=== PATIENT | male | born 1970 | race Caucasian/White ===

== ENCOUNTER 2024-10-12 13:47 | Outpatient (REF) | payer MEDICAID, SELFPAY ==
--- NOTE | ~2024-10-12 | XR_ITS ---
EXAMINATION: XR LUMBOSACRAL SPINE CLINICAL INFORMATION: pain COMPARISON: None available. TECHNIQUE: Three views of the lumbosacral spine. FINDINGS: No fracture, compression deformity, or suspicious bone lesion. Minimal dextroconvex scoliosis apex at L5. This could be positional. Normal lordosis. Trace degenerative 2 mm retrolistheses of L3 on L4 and L4 on L5. Severe disc degeneration focally L4-5 and L5-S1. Moderate disc degeneration at L3-4. Mild disc degeneration L2-3. Normal facet alignment. Degenerative facet changes most notable L4-S1. Sacrum and SI joints appear normal. There are vascular calcifications in the soft tissues. XR/XR lumbar spine 2-3V IMPRESSION: 1. No acute bony abnormalities. 2. Degenerative spondylosis most significant at L4-S1. Electronically signed by: Cristi Concepcion MD 10/12/2024 02:28 PM [facility]
--- OUTSIDE RECORDS SUMMARY | 2024-10-12 14:48 | XMS_ITS | Encounter Summary ---
Author Organization [employer] Address [address] [facility] [address] [address] [place] [address] Care Team Providers Care Education Adviser Name Role Phone Unavailable Primary Care Provider Unavailabl e Reason for Visit * Reason Comments Fall Encounter Details Date Type Department Care Team (Late st Contact Info) Description 10/12/2024 1:00 PM EST Office Visit [facility] [address], [place] [phone] Janette Shields MD [address] [place], [place] [phone] Primary hypertension (Primary Dx); Acute left-sided low back pain without sciatica; Smoker Social History Tobacco Use Types Packs/Day Years Used Date Smoking Tobacco: Never Assessed Sex and Gender Information Value Date Recorded Sex Assigned at Male 10/12/2024 10:31 AM EST Legal Sex Male 10:51 AM EST Gender Identity Male 10/12/2024 10:31 AM EST Sexual Orientation Straight 10/12/2024 10 :31 AM EST documented as of this encounter Last Filed Vital Signs Vital Sign Reading Time Taken Comments Blood Pressure 167/87 10/12/2024 1:01 PM EST Pulse 69 10/12/2024 1:01 PM EST Temperature 36.8 ??C (98.2 ??F) 10/12/2024 1:01 PM ES T Respiratory Rate 18 10/12/2024 1:01 PM EST Oxygen Saturation 96% 10/12/2024 1:01 PM EST Inhaled Oxygen Concentration - - Weight 110 kg (243 lb) 10/12/2024 1:01 PM EST Height - - Body Mass Index - - documented in this encounter Progress Notes * Janette Schuster MD - 10/12/2024 1:00 PM EST SUBJECTIVE: Du Ruggiero is a 54 y.o. year old male who presents for s/p fall, back pain . Occupation:[employer] Lives with:cousin - EtOH occasionally on birthdays and holidays - smoking cigarettes 25 cigarettes daily - recreational drug use denies Diet:regular Exercise:sedentary Surgeries/Hospitalizations:none Colonoscopy: 5 years ago in [place] PMHx:HTN FMHx:mother diabetes Immunizations: Reviewed Acute Concerns: Patient reports 2 days ago he was on his driveway, it was icy and he slept and fell on his back, hedid hit his head but reports it was not too hard, he reports he only has pain on his lower back left side, patient denies LOC, headache, nausea, vomiting, change in vision, dizziness, palpitations, confusion or other symptoms Social History Social History Narrative Not on file Patient Active Problem List Diagnosis Primary hypertension Acute left-sided low back pain without sciatica Smoker No family history on file. Review of Systems Constitutional: Negative. HENT: Negative. Respiratory: Negative. Cardiovascular: Negative. Musculoskeletal: Positive for back pain and myalgias. Neurological: Negative. OBJECTIVE: Vitals: 10/12/24 1301 BP: (!) 167/87 BP Location: Left arm Patient Position: Sitting BP Cuff Size: Large adult Pulse: 69 Resp: 18 Temp: 98.2 ??F (36.8 ??C) TempSrc: Temporal SpO2: 96% Weight: 243 lb (110 kg) Physical Exam Constitutional: Appearance: Normal appearance. Cardiovascular: Rate and Rhythm: Normal rate and regular rhythm. Pulmonary: Effort: Pulmonary effort is normal. Breath sounds: Normal breath sounds. Abdominal: General: Abdomen is flat. Palpations: Abdomen is soft. Musculoskeletal: Lumbar back: Spasms and tenderness present. Right lower leg: No edema. Left lower leg: No edema. Neurological: General: No focal deficit present. Mental Status: He is alert and oriented to person, place, and time. Mental status is at baseline. Cranial Nerves: No cranial nerve deficit. Motor: No weakness. Gait: Gait normal. Follow Up: Follow up for 2 weeks with nurse for BP check . No current outpatient medications on file prior to visit. No current facility-administered medications on file prior to visit. Problem List Items Addressed This Visit Primary hypertension - Primary I advised low Na diet and weight reduction Patient was taking amlodipine 10mg daily (prescribed in [place]) but he run out a long time ago, I will refill his prescription In light of smoker and HTN I start him on statin Blood work ordered patient will be contacted with results RTC 2 weeks nurse visit for BP check if BP is not at goal I will add hydrochlorothiazide 12.5mg daily Relevant Medications amLODIPine (Norvasc) 10 MG tablet atorvastatin (Lipitor) 40 MG tablet Other Relevant Orders CBC auto differential Comprehensive Metabolic Panel Hemoglobin A1c HIV-1/2 Antigen and Antibodies, Fourth Generation, with Reflexes Hepatitis C Antibody with Reflex to HCV, RNA, Quantitative, Real-Time PCR Lipid Panel, Standard Vitamin D, 25-Hydroxy, Total, Immunoassay Acute left-sided low back pain without sciatica Apply heat on affected area XRAY ordered he will be contacted with result Relevant Medications acetaminophen (Tylenol Extra Strength) 500 MG tablet cyclobenzaprine (Flexeril) 5 MG tablet Other Relevant Orders XR Lumbar Spine 2-3 Views Smoker Counseling done Nicotine patch prescribed Relevant Medications nicotine (Nicoderm CQ) 21 MG/24HR patch documented in this encounter Miscellaneous Notes * Assessment & Plan Note - Janette Schuster MD - 10/12/2024 1:45 PM EST Associated Problem(s): Smoker Counseling done Nicotine patch prescribed * Assessment & Plan Note - Janette Schuster MD - 10/12/2024 1:44 PM EST Associated Problem(s): Acute left-sided low back pain without sciatica Apply heat on affected area XRAY ordered he will be contacted with result * Assessment & Plan Note - Janette Schuster MD - 10/12/2024 1:44 PM EST Associated Problem(s): Primary hypertension I advised low Na diet and weight reduction Patient was taking amlodipine 10mg daily (prescribed in [place]) but he run out a long time ago, I will refill his prescription In light of smoker and HTN I start him on statin Blood work ordered patient will be contacted with results RTC 2 weeks nurse visit for BP check if BP is not at goal I will add hydrochlorothiazide 12.5mg daily documented in this encounter Plan of Treatment Upcoming Encounters Date Type Department Care Team (Late st Contact Info) Description 10/26/2024 1:30 PM EST Office Visit [facility] [address] [place] [phone] Scheduled Orders Name Type Priority Associated Diagnoses Orde r Schedule CBC auto differential Lab Routine Primary hypertension Expected: 10/12/2024 (Approximate), Expires: 10/12/2025 Comprehensive Metabolic Panel Lab Routine Primary hypertension Expected: 10/12/2024 (Approximate), Expires: 10/12/2025 Hemoglobin A1c Lab Routine Primary hypertension Expected: 10/12/2024 (Approximate), Expires: 10/12/2025 HIV-1/2 Antigen and Antibodies, Fourth Generation, with Reflexes Lab Routine Primary hypertension Expected: 10/12/2024 (Approximate), Expires: 10/12/2025 Hepatitis C Antibody with Reflex to HCV, RNA, Quantitative, Real-Time PCR Lab Routine Primary hypertension Expected: 10/12/2024, Expires: 10/12/2025 Lipid Panel, Standard Lab Routine Primary hypertension Expected: 10/12/2024 (Approximate), Expires: 10/12/2025 Vitamin D, 25-Hydroxy, Total, Immunoassay Lab Routine Primary hypertension Expected: 10/12/2024 (Approximate), Expires: 10/12/2025 documented as of this encounter Procedures Procedure Name Priority Date/Time Associated Diagnosis Comments XR LUMBAR SPINE 2-3 VIEWS Routine 10/12/2024 1:49 PM EST Acute left-sided low back pain without sciatica documented in this encounter Results * XR Lumbar Spine 2-3 Views (10/12/2024 1:49 PM EST) Anatomical Region Laterality Modality Spine, L-spine Radiographic Robina ging 10/12/2024 1:49 PM EST Narrative 10/12/2024 2:31 PM EST ?[facility] ?[address] ?[place] [address] ?XRay Report ? Signed ? Patient: Bahman,Coran ?MR#: [id number] ?? 2 ? : 1970 ?Acct:[id number] ? Age/Sex: 54 / M ?ADM Date: 10/12/24 ? Loc: HO.HHCX ? Attending Dr: Janette Schuster MD ? Ordering Physician: Janette Shields MD ?? Date of Service: 10/12/24 ?? Procedure(s): XR lumbar spine 2-3V ?? Accession Number(s): [id number] ? cc: Janette Shields MD ? EXAMINATION: ?? XR LUMBOSACRAL SPINE ? CLINICAL INFORMATION: ?? pain ? COMPARISON: ?? None available. ? TECHNIQUE: ?? Three views of the lumbosacral spine. ? FINDINGS: ?? No fracture, compression deformity, or suspicious bone lesion. ?? Minimal dextroconvex scoliosis apex at L5. This could be positional. ?? Normal lordosis. ?? Trace degenerative 2 mm retrolistheses of L3 on L4 and L4 on L5. ? Severe disc degeneration focally L4-5 and L5-S1. ?? Moderate disc degeneration at L3-4. ?? Mild disc degeneration L2-3. ? Normal facet alignment. Degenerative facet changes most notable L4-S1. ? Sacrum and SI joints appear normal. ? There are vascular calcifications in the soft tissues. ? XR/XR lumbar spine 2-3V ?? IMPRESSION: ?? 1. No acute bony abnormalities. ?? 2. Degenerative spondylosis most significant at L4-S1. ? Electronically signed by: ??Cristi Concepcion MD ??10/12/2024 02:28 PM EST RP ? Dictated By: ?Cristi Concepcion MD ? Signed By: ?<Electronically signed by Cristi Concepcion MD in OV> ?10/12/24 1428 ? DD/ 1349 ? TD/TT: 10/12/24 1350 ? Ecosystem Ecology Professor: ? Procedure Note Breanna, Image - 10/12/2024 [facility] [address] [place] [address] XRay Report Signed Patient: Du RuggieroMR#: [id number] 2 : 1970Acct:[id number] Age/Sex: 54 / MADM Date: 10/12/24 Loc: HO.CX Attending Dr: Janette Schuster MD Ordering Physician: Janette Shields MD Date of Service: 10/12/24 Procedure(s): XR lumbar spine 2-3V Accession Number(s): [id number] cc: Janette Shields MD EXAMINATION: XR LUMBOSACRAL SPINE CLINICAL INFORMATION: pain COMPARISON: None available. TECHNIQUE: Three views of the lumbosacral spine. FINDINGS: No fracture, compression deformity, or suspicious bone lesion. Minimal dextroconvex scoliosis apex at L5. This could be positional. Normal lordosis. Trace degenerative 2 mm retrolistheses of L3 on L4 and L4 on L5. Severe disc degeneration focally L4-5 and L5-S1. Moderate disc degeneration at L3-4. Mild disc degeneration L2-3. Normal facet alignment. Degenerative facet changes most notable L4-S1. Sacrum and SI joints appear normal. There are vascular calcifications in the soft tissues. XR/XR lumbar spine 2-3V IMPRESSION: 1. No acute bony abnormalities. 2. Degenerative spondylosis most significant at L4-S1. Electronically signed by: Cristi Concepcion MD 10/12/2024 02:28 PM [facility] Dictated By: Cristi Concepcion MD Signed By: <Electronically signed by Cristi Concepcion MD in OV> 10/12/24 1428 DD/ 1349 TD/TT: 10/12/24 1350 Ecosystem Ecology Professor: Janette Schuster MD IMG XR PROCEDURES Jeff gera Result - Final documented in this encounter Visit Diagnoses Diagnosis Primary hypertension- Primary Unspecified essential hypertension Acute left-sided low back pain without sciatica Smoker Tobacco use disorder documented in this encounter
--- OUTSIDE RECORDS SUMMARY | 2024-10-12 14:48 | XMS_ITS | Clinical Summary ---
Author Organization [employer] Address [address] [facility] [address] [place] [address] Care Team Providers Care Inspector Elevators Name Role Phone Unavailable Primary Care Provider Unavailabl e Allergies No known active allergies Medications amLODIPine (Norvasc) 10 MG tabletIndications :Primary hypertension Take 1 tablet (10 mg) by mouth Once per day. 90 tablet 5 10/12/19 26 Active acetaminophen (Tylenol Extra Strength) 500 MG tabletIndications :Acute left-sided low back pain without sciatica Take 2 tablets (1,000 mg) by mouth every 8 (eight) hours if needed for mild pain for up to 10 days. 30 tablet 5 10/22/19 25 Active cyclobenzaprine (Flexeril) 5 MG tabletIndications :Acute left-sided low back pain without sciatica Take 1 tablet (5 mg) by mouth 3 times daily for 10 days. 30 tablet 5 10/22/19 25 Active atorvastatin (Lipitor) 40 MG tabletIndications :Primary hypertension Take 1 tablet (40 mg) by mouth Once per day. 30 tablet 2 5 10/12/19 26 Active nicotine (Nicoderm CQ) 21 MG/24HR patchIndications: Smoker Place 1 patch on the skin 1 (one) time each day at the same time. 30 patch 5 11/12/19 25 Active Active Problems Problem Noted Date Diagnosed Date Primary hypertension 10/12/2024 Assessment & Plan (10/12/2024 1:46 PM EST): I advised low Na diet and weight [...] goal I will add hydrochlorothiazide 12.5mg daily Acute left-sided low back pain without sciatica 10/12/2024 Assessment & Plan (10/12/2024 1:44 PM EST): Apply heat on affected area XRAY ordered he will be contacted with result Smoker 10/12/2024 Assessment & Plan (10/12/2024 1:45 PM EST): Counseling done Nicotine patch prescribed Encounters Date Type Department Care Team Description 10/12/2024 1:00 PM EST Office Visit [facility] [address] [place] [phone] Janette Shields MD Primary hypertension (Primary Dx); Acute left-sided low back pain without sciatica; Smoker from Last 3 Months Social History Tobacco Use Types Packs/Day Years Used Date Smoking Tobacco: Never Assessed Sex and Gender Information Value Date Recorded Sex Assigned at Male 10/12/2024 10:31 AM EST Legal Sex Male 10:51 AM EST Gender Identity Male 10/12/2024 10:31 AM EST Sexual Orientation Straight 10/12/2024 10 :31 AM EST Last Filed Vital Signs Vital Sign Reading [...] - - Body Mass Index - - Plan of Treatment Upcoming Encounters Date Type Department Care Team (Late st Contact Info) Description 10/26/2024 1:30 PM EST Office Visit [facility] [address] [place] [address] Health Maintenance Due Date Last Done Comments CT Colonography 1970 Colonoscopy 1970 Colorectal Cancer Screening 1970 Depression Screening 1970 FIT DNA/Cologuard 1970 FIT 1970 FOBT 1970 HIV Screening 1970 Lipid Panel 1970 SDOH Screening 1970 Sigmoidoscopy 1970 Alcohol/Substance Use Screening 1982 Tobacco Screening 1982 Hepatitis C Screening 1988 Pneumococcal Vaccine: 50+ Years (1 of 1 - PCV) 2020 Zoster Vaccines (1 of 2) 2020 Hepatitis B Vaccines (2 of 2 - CpG 2-dose series) 01/02/2024 12/05/2023 COVID-19 Vaccine (4 - 2023-2 5 season) 2024 11/27/2023, 02/11/2021, 01/21/2021 Influenza Vaccine (#1) 2024 DTaP/Tdap/Td Vaccines (2 - T d or Tdap) 12/04/2033 12/05/2023 RSV Patients and Patients Aged 60 years or older (1 - 1-dose 75+ series) 2045 HIB Vaccines Aged Out No longer eligi ble based on patient's age to complete this topic HPV Vaccines Aged Out No longer eligi ble based on patient's age to complete this topic Hepatitis A Vaccines Aged Out No long er eligible based on patient's age to complete this topic IPV Vaccines Aged Out No longer eligi ble based on patient's age to complete this topic Meningococcal Vaccine Aged Out No nolan gaye eligible based on patient's age to complete this topic RSV under 20 months Aged Out No longe r eligible based on patient's age to complete this topic Rotavirus Vaccines Aged Out No longer eligible based on patient's age to complete this topic Procedures Procedure Name Priority Date/Time Associated Diagnosis Comments XR LUMBAR SPINE 2-3 VIEWS Routine 10/12/2024 1:49 PM EST Acute left-sided low back pain without sciatica from Last 3 Months Results * XR Lumbar Spine 2-3 Views (10/12/2024 1:49 PM EST) Anatomical Region Laterality Modality Spine, L-spine Radiographic Robina ging 10/12/2024 1:49 PM EST Narrative 10/12/2024 2:31 PM EST ?[facility] [facility] ?[address] ?[place] [address] ?XRay Report ? Signed ? Patient: Bahman,Coran ?MR#: [id number] ?? 2 ? : 1970 ?Acct:[id number] ? Age/Sex: 54 / M ?ADM Date: 10/12/24 ? Loc: HO.HHCX ? Attending Dr: Janette Schuster MD ? Ordering Physician: Janette Shields MD ?? Date of Service: 10/12/24 ?? Procedure(s): XR lumbar spine 2-3V ?? Accession Number(s): [id number] ? cc: Janette Shields MD ? EXAMINATION: [...] DD/ 1349 ? TD/TT: 10/12/24 1350 ? Sulfuric Acid Plant Operator: ? Procedure Note Concha Carlos - 10/12/2024 [facility] [address] [place] [address] XRay Report Signed Patient: Du RuggieroMR#: [id number] 2 : 1970Acct:[id number] Age/Sex: 54 / MADM Date: 10/12/24 Loc: HO.HHCX Attending Dr: Janette Schuster MD Ordering Physician: Janette Shields MD Date of Service: 10/12/24 Procedure(s): XR lumbar spine 2-3V Accession Number(s): [id number] cc: Janette Shields MD EXAMINATION: XR LUMBOSACRAL [...] by: Cristi Concepcion MD 10/12/2024 02:[address] [facility] Dictated By: Cristi Concepcion MD Signed By: <Electronically signed by Cristi Concepcion MD in OV> 10/12/24 1428 DD/ 1349 TD/TT: 10/12/24 1350 S[employer]uric Acid Plant Operator: Janette Schuster MD IMG XR PROCEDURES Jeff gera Result - Final from Last 3 Months Insurance [employer] HSN FULL
== END 2024-10-12 13:48 | disposition home or self-care (01) ==
LOC: HO.HHCX 13:47
PROVIDERS: Visit Provider Internal Medicine
DX: M54.50 Low back pain, unspecified (principal)
CPT/HCPCS: 72100

== ENCOUNTER → 2024-10-12 13:49 | Outpatient (BNV) | payer MEDICAID, SELFPAY | PROVIDERS: Visit Provider Radiology Diagnostic Radiology | DX: M47.896 Other spondylosis, lumbar region (principal) | CPT/HCPCS: 72100 ==

== ENCOUNTER 2025-05-03 12:05 | Outpatient (REF) | payer BC, MEDICAID, SELFPAY ==
--- OUTSIDE RECORDS SUMMARY | 2025-05-03 18:00 | XMS_ITS | Encounter Summary ---
Author Organization [employer] Address [address] [facility] 7t [place] [address] Care Team Providers Care Key Carrier Name Role Phone CarmenMaria Isabel hawkins Primary Care Provider [phone] Encounter Details Date Type Department Care Team (Late st Contact Info) Description 05/03/2025 6:00 PM EDT Office Visit [facility] [address] [place], [place] [phone] Kaylah Wilburn MD [address], [place] [phone] Penile discharge (Primary Dx); Acute midline low back pain without sciatica Social History Tobacco Use Types Packs/Day Years [...] Sign Reading Time Taken Comments Blood Pressure 152/104 05/03/2025 5:28 PM EDT Pulse 98 05/03/2025 5:28 PM EDT Temperature 36.1 C (97 F) 05/03/2025 5:28 PM EDT Respiratory Rate 18 05/03/2025 5:28 PM EDT Oxygen Saturation - - Inhaled Oxygen Concentration - - Weight 106 kg (234 lb 3.2 oz) 05/03/2025 5:28 PM EDT Height 170.2 cm (5' 7 ) 05/03/2025 5:28 PM EDT Body Mass Index 36.68 05/03/2025 5:28 PM EDT documented in this encounter Patient Instructions * Patient Instructions* Kaylah Wilburn MD - 05/03/2025 6:00 PM EDT [address] [place], [place] documented in this encounter Progress Notes * Kaylah Wilburn MD - 05/03/2025 6:00 PM EDT Subjective Patient ID: Du Ruggiero is a 55 y.o. male who presents to walk in clinic for left sided back painand dysuria with penile discharge. Pt reports acute on chronic left sided back pain with associated dysuria and yellow penile discharge when trying to express discharge. Sexual activity 4 days ago. 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 L spine X ray 10/11/24 XR/XR lumbar spine 2-3V IMPRESSION: 1. No acute bony abnormalities. 2. Degenerative spondylosis most significant at L4-S1. Review of Systems Constitutional: Negative for fever. Gastrointestinal: Negative for abdominal pain, blood in stool, constipation, diarrhea and rectal pain. Genitourinary: Positive for penile discharge. Negative for decreased urine volume, difficulty urinating, dysuria, enuresis, flank pain, frequency, genital sores, hematuria, penile pain, penile swelling, scrotal swelling, testicular pain and urgency. Musculoskeletal: Positive for back pain. Negative for gait problem. Objective Visit Vitals BP (!) 152/104 (BP Location: Left arm, Patient Position: Sitting, BP Cuff Size: Adult) Pulse 98 Temp 97 ??F (36.1 ??C) (Oral) Resp 18 Body mass index is 36.68 kg/m??. Physical Exam Genitourinary: Penis: Normal and uncircumcised. No phimosis, paraphimosis, hypospadias, erythema, tenderness, discharge, swelling or lesions. Testes: Normal. Right: Mass, tenderness or swelling not present. Left: Mass, tenderness or swelling not present. Prostate: Normal. Rectum: Normal. Musculoskeletal: Lumbar back: Spasms and tenderness present. No swelling, deformity, lacerations or bony tenderness.Normal range of motion. No scoliosis. Comments: No midline tenderness deformity of step off. Left paraspinal muscle tenderness. Assessment & Plan Penile discharge Check UA, culture, STIs, he will get labs that are pending this weekend at [facility] before his PCP apt later this months. -empiric tx with doxycycline for possible STI exposure vs UTI Orders: Chlamydia/N. Gonorrhoeae, PCR, Urine Urinalysis, Complete, with Reflex to Culture; Future POCT Urinalysis doxycycline (Vibramycin) 100 MG capsule; Take 1 capsule (100 mg) by mouth 2 times daily for 10 days. Take with at least 8 ounces (large glass) of water, do not lie down for 30 minutes after Acute midline low back pain without sciatica Likely musculoskeletal. Non-focal, normal motor exam without neurological deficits. No back pain red-flags: bowel/bladder incontinence, IVDU, urinary retention, saddle anesthesia, and significant motor deficits. -xray 09/2024 without acute finding -Recommend acetmenophen and muscle relaxer prn.Orders: cyclobenzaprine (Flexeril) 10 MG tablet; One tab po at bedtime prn pain of muscles, do not drive with medicaion addendum 05/04/25 3:03 PM Positive gonorrhea, see call: Please let pt know he tested positive for gonorrhea. He needs to come in for ceftriaxone 500mg IM. Please obtain gonorrhea culture before treatment to test for resistance. I will place order. He can stop the doxycycline. Return 3 months for retesting. Please confirm he has no allergies to antibiotics and let me know when treated if if can't reach him. Thank you. Future Appointments Date Time Provider Department Center 05/03/2025 6:00 PM [facility] 1 WALK-IN [facility] 05/18/2025 10:30 AM [facility] RED TEAM NURSE MEDICINE [facility] documented in this encounter Plan of Treatment Upcoming Encounters Date Type Department Care Team (Late st Contact Info) Description 05/18/2025 10:30 AM EDT Office Visit [facility] [address] [place] [address] documented as of this encounter Procedures Procedure Name Priority Date/Time Associated Diagnosis Comments POCT URINALYSIS DIPSTICK Routine 05/03/2025 5:41 PM EDT Penile discharge CHLAMYDIA/TRICHOMONA S/NEISSERIA GONORRHOEAE, PCR, URINE Routine 05/03/2025 5:39 PM EDT Penile discharge URINALYSIS, COMPLETE, WITH REFLEX TO CULTURE Routine 05/03/2025 5:39 PM EDT Penile discharge documented in this encounter Results * (ABNORMAL) POCT Urinalysis (05/03/2025 5:41 PM EDT) Color, UA Light Yellow Clarity, UA Cloudy Glucose, UA Trace Comment:250mg Bilirubin, UA Negative Ketones, UA Negative Spec Grav, UA 1.025 Blood, UA Positive(A) Negative, None Detected Comment:trace-intact pH, UA 6.0 Protein, UA Trace Comment:30mg Urobilinogen, UA 0.2 Leukocytes, UA Moderate(A) Negative, Rare, Trace Nitrite, UA Negative Negative, None Detected Appearance, UA cloudy QC Media Lot # [id number] Lot# Expiration Date Urine 05/03/2025 5:41 PM EDT Kaylah Wilburn MD POINT OF CARE TEST ENTER/E DIT ORDERABLES Final Result * (ABNORMAL) Urinalysis, Complete, with Reflex to Culture (05/03/2025 5:39 PM EDT) Color Urine Yellow [facility] Appearance Urine Turbid [facility] PH 6.0 5.0 - 9.0 [facility] Glucose Urine UA 500(A) Negative mg/dL [facility] Urine Blood Negative Negative [facility] Specific [place] - Urine >=1.030(H) 1.005 - 1.025 [facility] Urine Protein 30 (1+)(A) Neg-Trace mg/dL [facility] Urine Ketones Trace Negative mg/dL [facility] Nitrite Urine Negative Negative [facility] Leukocyte Esterase Urine Moderate (2+)(A) Negative [facility] RBC Urine 0-2 0 - 2 /HPF [facility] Urine WBC >50(A) 0 - 5 /HPF [facility] Urine Squamous Epithelial Cell 0-2 0 - 2 /HPF [facility] CALCIUM OXALATE CRYSTAL, UR Present [facility] Urine Bacteria None Seen None Seen [facility] Hyaline Casts, Urine 11-20 0 - 2 /LPF [facility] Urine 05/03/2025 5:39 PM EDT 05/04/2025 12:08 PM EDT Narrative [facility] - 05/04/2025 12:49 PM EDT [id number], Clean Catch us Kaylah Wilburn MD LAB URINE ORDERABLES Final Result [facility] [address] [place] [phone] [phone] * (ABNORMAL) Chlamydia/N. Gonorrhoeae, PCR, Urine (05/03/2025 5:39 PM EDT) CT PCR, Urine NOT DETECTED Not Detect. [facility] Comment:A not detected test result does not exclude the possibilityof infection because test results can be affected byimproper specimen collection, concurrent antibiotic therapy,or the number of organisms in the specimen which may bebelow the sensitivity of the test. As with many diagnostictests, results from the Xpert CT/NG assay should beinterpreted in conjunction with other laboratory andclinical data available to the clinician.The Xpert CT/NG assay should not be used for the evaluationof suspected sexual abuse or for other medico-legalindications. Additional testing is recommended in anycircumstance when false positive or false negative resultscould lead to adverse medical, social or psychologicalconsequences. NG PCR, Urine DETECTED(A) Not Detect. [facility] Comment:As with many diagnos tic tests, results from the Xpert CT/NGassay should be interpreted in conjunction with otherlaboratory and clinical data available to the clinician.Xpert CT/NG performance has not been evaluated in patientsless than 14 years of age. The assay should not be used forthe evaluationof suspected sexual abuse or for other medico-legalindications. Additional testing is recommended in anycircumstance when false positive or false negative resultscould lead to adverse medical, social or psychologicalconsequences.These results must be reported by the ordering clinician orclinical facility to the [facility] required by state law. Urine (Urine, Random) 05/03/2025 5:39 PM EDT 05/04/2025 12:16 PM EDT us Kaylah Wilburn MD LAB URINE ORDERABLES Final Result [facility] [address] [place] [phone] documented in this encounter Visit Diagnoses Diagnosis Penile discharge- Primary Urethral discharge Acute midline low back pain without sciatica documented in this encounter Care Teams Key Carrier Relationship Specialty Start Date End Date Maria Isabel North DO [address] [place] [phone] PCP - General Family Medicine 05/03/25 documented as of this encounter
[2025-05-04 12:33] LABS: Appearance Urine Turbid; Glucose Urine UA 500 mg/dL (Negative); PH 6.0 (5.0-9.0); Specific Gravity - Urine >= 1.030 (1.005-1.025); UMIC TRIGGER UACC YES
[2025-05-04 12:49] LABS: UACC Culture Trigger YES
[2025-05-04 14:04] LABS: CT PCR Urine NOT DETECTED (Not Detect.); NG PCR Urine DETECTED (Not Detect.)
--- OUTSIDE RECORDS SUMMARY | 2025-05-04 15:16 | XMS_ITS | Encounter Summary ---
Author Organization [employer] Address [address] [facility] 7t [place] [address] Care Team Providers Care Line Maintenance Name Role Phone Maria Isabel North DO Primary Care Provider [phone] Encounter Details Date Type Department Care Team (Late st Contact Info) Description 05/04/2025 Results Follow-Up [facility] [address] [place] [phone] Kaylah Wilburn MD [address] [place] [phone] Chlamydia/N. Gonorrhoeae, PCR, Urine, Urinalysis, Complete, with Reflex to Culture, POCT Urinalysis Social History Tobacco Use Types Packs/Day Years Used Date Smoking Tobacco: Never Assessed Sex and Gender Information Value Date Recorded Sex Assigned at Male 10/12/2024 10:31 AM EST Legal Sex Male 10:51 AM EST Gender Identity Male 10/12/2024 10:31 AM EST Sexual Orientation Straight 10/12/2024 10 :31 AM EST documented as of this encounter Plan of Treatment Upcoming Encounters Date Type Department Care Team (Late Contact Info) Description 05/18/2025 10:30 AM EDT Office Visit [facility] [address] [place] [phone] Scheduled Orders Name Type Priority Associated Diagnoses Orde r Schedule Neisseria gonorrhoeae Culture with Reflex to Susceptibility Microbiology Routine Gonorrhea Expected: 05/04/2025 (Approximate), Expires: 05/04/2026 documented as of this encounter Visit Diagnoses Diagnosis Gonorrhea- Primary Gonococcal infection (acute) of lower genitourinary tract documented in this encounter Care Teams Line Maintenance Relationship Specialty Start Date End Date Maria Isabel North DO [address] [place] [phone] PCP - General Family Medicine 05/03/25 documented as of this encounter
--- OUTSIDE RECORDS SUMMARY | 2025-05-04 15:16 | XMS_ITS | Clinical Summary ---
Author Organization [employer] Address [address] [facility] 7t [place] [address] Care Team Providers Care Electrical Hardware Engineer Name Role Phone Mary Anne Maria Isabel Primary Care Provider [phone] Allergies No known active allergies Medications atorvastatin (Lipitor) 40 MG tabletIndicatio ns:Primary hypertension Take 1 tablet (40 mg) by mouth Once per day. 30 tablet 2 10/12/19 25 026 Active nicotine (Nicoderm CQ) 21 MG/24HR patchIndication s:Smoker Place 1 patch on the skin 1 (one) time each day at the same time. 30 patch 10/12/19 25 Active amLODIPine (Norvasc) 10 MG tabletIndicatio ns:Primary hypertension Take 1 tablet (10 mg) by mouth Once per day. 90 tablet 1 04/26/20 25 Active cyclobenzaprine (Flexeril) 10 MG tabletIndicatio ns:Acute midline low back pain without sciatica One tab po at bedtime prn pain of muscles, do not drive with medicaion 30 tablet 05/03/20 25 Active doxycycline (Vibramycin) 100 MG capsuleIndicati ons:Penile discharge Take 1 capsule (100 mg) by mouth 2 times daily for 10 days. Take with at least 8 ounces (large glass) of water, do not lie down for 30 minutes after 20 capsule 05/03/20 25 025 Active amLODIPine (Norvasc) 10 MG tabletIndicatio ns:Primary hypertension TAKE 1 TABLET (10 MG) BY MOUTH ONCE PER DAY. 90 tablet 01/08/20 25 025 Discontinued(Re order (will not trigger notification to Pharmacy)) Hospital, Clinic, or Other Facility Administered Medication Ordered Dose Route Frequency Start Date End Date Status cefTRIAXone (Rocephin) vial 500 mgIndications:Gonorrhea 500 mg IM Once 05/04/2025 Active Active Problems Problem Noted Date Diagnosed [...] Encounters Date Type Department Care Team Description 05/04/2025 Results Follow-Up [facility] [address] [place] [phone] Kaylah Wilburn MD Chlamydia/N. Gonorrhoeae, PCR, Urine, Urinalysis, Complete, with Reflex to Culture, POCT Urinalysis 05/03/2025 6:00 PM EDT Office Visit [facility] [address] [place] [phone] Kaylah Wilburn MD Penile discharge (Primary Dx); Acute midline low back pain without sciatica 05/03/2025 Travel 04/26/2025 9:40 AM EDT Office Visit [facility] [address] [address] Maria Isabel North DO Essential hypertension (Primary Dx); Primary hypertension 04/26/2025 Travel from Last 3 Months Social History Tobacco [...] 18 05/03/2025 5:28 PM EDT Oxygen Saturation 96% 04/26/2025 10:01 AM EDT Inhaled Oxygen Concentration - - Weight 106 kg (234 lb 3.2 oz) 05/03/2025 5:28 PM EDT Height 170.2 cm (5' 7 ) 05/03/2025 5:28 PM EDT Body Mass Index 36.68 05/03/2025 5:28 PM EDT Plan of Treatment Upcoming Encounters Date Type Department Care Team (Late st Contact Info) Description 05/18/2025 10:30 AM EDT Office Visit [facility] [address] [place] [phone] Health Maintenance Due Date Last Done Comments CT Colonography 1970 Colonoscopy 1970 Colorectal Cancer Screening 1970 Depression Screening 1970 FIT DNA/Cologuard 1970 FIT 1970 FOBT 1970 HIV Screening 1970 Lipid Panel 1970 SDOH Screening 1970 Sigmoidoscopy 1970 Disability Screening 1970 Alcohol/Substance Use Screening 1982 Tobacco Screening 1982 Hepatitis C Screening 1988 Pneumococcal Vaccine: 50+ Years (1 of 1 - PCV) 2020 Zoster Vaccines (1 of 2) 2020 Hepatitis B Vaccines (2 of 2 - CpG 2-dose series) 01/02/2024 12/05/2023 COVID-19 Vaccine (4 - 2024-2 6 season) 2025 11/27/2023, 02/11/2021, 01/21/2021 Influenza Vaccine (#1) 2025 DTaP/Tdap/Td Vaccines (2 - T d or [...] patient's age to complete this topic Meningococcal B Vaccine Aged Out No l onger eligible based on patient's age to complete [...] Routine 05/03/2025 5:41 PM EDT Penile discharge URINALYSIS, COMPLETE, WITH REFLEX TO CULTURE Routine 05/03/2025 5:39 PM EDT Penile discharge CHLAMYDIA/TRICHOMONA S/NEISSERIA GONORRHOEAE, PCR, URINE Routine 05/03/2025 5:39 PM EDT Penile discharge from Last 3 Months Results * (ABNORMAL) POCT Urinalysis (05/03/2025 5:41 [...] Media Lot # [id number] Lot# Expiration Date , Urine 05/03/2025 5:41 PM EDT Kaylah Wilburn MD POINT OF CARE TEST ENTER/E DIT ORDERABLES Final Result * (ABNORMAL) Chlamydia/N. Gonorrhoeae, PCR, Urine (05/03/2025 5:39 PM EDT) CT PCR, Urine NOT DETECTED Not Detect. [facility] Comment:A not detected test result does [...] NG PCR, Urine DETECTED(A) Not Detect. [facility] Comment:As with many diagnos tic tests, [...] the ordering clinician orclinical facility to the [facility] required by state law. Urine (Urine, Random) 05/03/2025 5:39 PM EDT 05/04/2025 12:16 PM EDT us Kaylah Wilburn MD LAB URINE ORDERABLES Final Result [facility] [address] [place] [phone] * (ABNORMAL) Urinalysis, Complete, with Reflex to Culture (05/03/2025 5:39 PM EDT) Color Urine Yellow [facility] Appearance Urine Turbid [facility] PH 6.0 5.0 - 9.0 [facility] Glucose Urine UA 500(A) Negative mg/dL [facility] Urine Blood Negative Negative [facility] Specific [place] - Urine >=1.030(H) 1.005 - 1.025 [facility] Urine Protein 30 (1+)(A) Neg-Trace mg/dL [facility] Urine Ketones Trace Negative mg/dL [facility] Nitrite Urine Negative Negative [facility] Leukocyte Esterase Urine Moderate (2+)(A) Negative [facility] RBC Urine 0-2 0 - 2 /HPF [facility] Urine WBC >50(A) 0 - 5 /HPF [facility] Urine Squamous Epithelial Cell 0-2 0 - 2 /HPF [facility] CALCIUM OXALATE CRYSTAL, UR Present [facility] Urine Bacteria None Seen None Seen [facility] Hyaline Casts, Urine 11-20 0 - 2 /LPF [facility] Urine 05/03/2025 5:39 PM EDT 05/04/2025 12:08 PM EDT Narrative [facility] - 05/04/2025 12:49 PM EDT [id number], Clean Catch us Kaylah Wilburn MD LAB URINE ORDERABLES Final Result [facility] [address] [place] [phone] from Last 3 Months Insurance [facility] Main [address] [address] [employer] HMO Care Teams Electrical Hardware Engineer Relationship Specialty Start Date End Date Maria Isabel North DO [address] [place] [address] PCP - General Family Medicine 05/03/25
--- OUTSIDE RECORDS SUMMARY | 2025-05-04 15:16 | XMS_ITS | Encounter Summary ---
Author Organization [employer] Address [address] [facility] [address]t [place] [address] Care Team Providers Care Metal Spray Operator Name Role Phone Maria Isabel North DO Primary Care Provider Encounter Details Date Type Department Care Team (Latest Contact Info) Description 05/03/2025 Travel Social History Tobacco Use Types Packs/Day Years [...] Description 05/18/2025 10:30 AM EDT Office Visit [facility] [address] [place] [address] documented as of this encounter Visit Diagnoses Not on filedocumented in this encounter Care Teams Metal Spray Operator Relationship Specialty Start Date End Date Maria Isabel North DO [address] [place] [address] PCP - General Family Medicine 05/03/25 documented as of this encounter
== END 2025-05-03 12:06 | disposition home or self-care (01) ==
LOC: HO.HHCLNP 12:05
PROVIDERS: Visit Provider Family Medicine
DX: R36.9 Urethral discharge, unspecified (principal)
CPT/HCPCS: 81001; 87086; 87491; 87591

== ENCOUNTER 2025-05-18 10:55 | Outpatient (REF) | payer BC, MEDICAID, SELFPAY ==
--- OUTSIDE RECORDS SUMMARY | 2025-05-18 10:30 | XMS_ITS | Encounter Summary ---
Author Organization [employer] Address [address] [facility] 7t [place] [address] Care Team Providers Care Professor Of Pathology Name Role Phone CarmenMaria Isabel hawkins Primary Care Provider [phone] Reason for Visit * Reason Comments Blood Pressure Check Encounter Details Date Type Department Care Team (Latest Contact Info) Description 05/18/2025 10:30 AM EDT Clinical Support [facility] MED[facility]INE [address] [place], [place] [phone] Lily Espitia RN [address] [place], [place] [phone] Primary hypertension [I10] Social History Tobacco Use [...] Patient advised RN will refer patient to [facility] eyecare and he will receive a call [...] Description 06/01/2025 10:00 AM EDT Clinical Support [facility] MED[facility]INE [address] [place] [address] documented as of this encounter Visit Diagnoses Diagnosis Primary hypertension [I10] Unspecified essential hypertension documented in this encounter Care Teams Professor Of Pathology Relationship Specialty Start Date End Date Maria Isabel North DO [address] [place] [address] PCP - General Family Medicine 05/03/25 documented as of this encounter
--- OUTSIDE RECORDS SUMMARY | 2025-05-18 10:40 | XMS_ITS | Encounter Summary ---
Author Organization [employer] Address [address] [facility] [address] [place] [address] Care Team Providers Care Parking Lot Chauffeur Name Role Phone Mary AnneMaria Isabel Primary Care Provider [phone] Encounter Details Date Type Department Care Team (Late st Contact Info) Description 05/18/2025 10:40 AM EDT Office Visit [facility] [address] [place] [address] Joya Hernandez MD [address] [place] [address] Rash (Primary Dx) Social History Tobacco Use Types Packs/Day Years Used Date Smoking Tobacco: Every Day Cigarettes Sex and Gender Information Value Date Recorded Sex Assigned at Male 10/12/2024 10:31 AM EST Legal Sex Male 10:51 AM EST Gender Identity Male 10/12/2024 10:31 AM EST Sexual Orientation Straight 10/12/2024 10 :31 AM EST documented as of this encounter Last Filed Vital Signs Vital Sign Reading Time Taken Comments Blood Pressure 124/82 05/18/2025 10:40 AM EDT Pulse 90 05/18/2025 10:40 AM EDT Temperature 36.7 C (98 F) 05/18/2025 10:40 AM EDT Respiratory Rate 18 05/18/2025 10:40 AM EDT Oxygen Saturation 96% 05/18/2025 10:40 AM EDT Inhaled Oxygen Concentration - - Weight 100 kg (221 lb) 05/18/2025 10:40 AM EDT Height - - Body Mass Index 34.61 05/03/2025 5:28 PM EDT documented in this encounter Progress Notes * Joya Hernandez MD - 05/18/2025 10:40 AM EDT Subjective Patient ID: Du Ruggiero is a 55 y.o. male who presents for No chief complaint on file.. Rash This is a new problem. The current episode started in the past 7 days. The affected locations include the genitalia. Review of Systems Respiratory: Negative. Cardiovascular: Negative. Skin: Positive for rash. Objective Physical Exam Skin: Findings: Erythema and rash present. Comments: Perianal rash Assessment/Plan Diagnoses and all orders for this visit: Rash Comments: Perianal area Started On combination of topical clobetazol and Triamcinolone Advised topical Zinc oxide Other orders - clotrimazole (Lotrimin) 1 % cream; Apply topically 2 times daily for 28 days. - triamcinolone (Kenalog) 0.1 % cream; Apply topically if needed in the morning and at bedtime (pain and swelling). documented in this encounter Plan of Treatment Upcoming Encounters Date Type Department Care Team (Late st Contact Info) Description 06/01/2025 10:00 AM EDT Clinical Support [facility] MEDICINE [address] [place] [phone] documented as of this encounter Visit Diagnoses Diagnosis Rash- Primary Rash and other nonspecific skin eruption documented in this encounter Care Teams Parking Lot Chauffeur Relationship Specialty Start Date End Date Maria Isabel North DO [address] [place] [phone] PCP - General Family Medicine 05/03/25 documented as of this encounter
--- OUTSIDE RECORDS SUMMARY | 2025-05-18 14:02 | XMS_ITS | Encounter Summary ---
Author Organization [employer] Address [address] [facility] 7t [place] [address] Care Team Providers Care Board Member Name Role Phone Maria Isabel North DO Primary Care Provider [phone] Reason for Visit * Reason Onset Date Comments Med Refill 05/18/2025 Encounter Details Date Type Department Care Team (Late st Contact Info) Description 05/18/2025 Refill [facility] MEDICINE [address] [place] [phone] Maria Isabel North DO [address] [place], [place] [phone] Social History Tobacco Use Types Packs/Day Years Used Date Smoking Tobacco: Every Day Cigarettes Sex and Gender Information Value Date Recorded Sex Assigned at Male 10/12/2024 10:31 AM EST Legal Sex Male 10:51 AM EST Gender Identity Male 10/12/2024 10:31 AM EST Sexual Orientation Straight 10/12/2024 10 :31 AM EST documented as of this encounter Miscellaneous Notes * Telephone Encounter - Lily Espitia RN - 05/18/2025 10:56 AM EDT michele documented in this encounter Plan of Treatment Upcoming Encounters Date Type Department Care Team (Late st Contact Info) Description 06/01/2025 10:00 AM EDT Clinical Support [facility] MEDICINE [address] [place] [phone] documented as of this encounter Visit Diagnoses Not on filedocumented in this encounter Care Teams Board Member Relationship Specialty Start Date End Date Maria Isabel North DO [address] [place], [place] [phone] PCP - General Family Medicine 05/03/25 documented as of this encounter
--- OUTSIDE RECORDS SUMMARY | 2025-05-18 14:02 | XMS_ITS | Clinical Summary ---
Author Organization [employer] Address [address] [facility] 7t [place] [address] Care Team Providers Care Consumer Marketing Analyst Name Role Phone Mary AnneMaria Isabel Primary Care Provider Allergies No known active allergies Medications atorvastatin [...] with medicaion 30 tablet 05/03/20 25 Active clotrimazole (Lotrimin) 1 % cream Apply topically 2 times daily for 28 days. 30 g 2 05/18/20 25 025 Active triamcinolone (Kenalog) 0.1 % cream Apply topically if needed in the morning and at bedtime (pain and swelling). 30 g 2 05/18/20 25 Active losartan (Cozaar) 25 MG tablet Take 1 tablet (25 mg) by mouth Once per day. 90 tablet 3 05/18/20 25 026 Active amLODIPine (Norvasc) 10 MG tabletIndicatio ns:Primary hypertension TAKE 1 TABLET (10 MG) BY MOUTH ONCE PER DAY. 90 tablet 01/08/20 25 025 Discontinued(Re order (will not trigger notification to Pharmacy)) doxycycline (Vibramycin) 100 MG capsuleIndicati ons:Penile discharge Take 1 capsule (100 mg) by mouth 2 times daily for 10 days. Take with at least 8 ounces (large glass) of water, do not lie down for 30 minutes after 20 capsule 05/03/20 25 025 Hospital, Clinic, or Other Facility Administered Medication Ordered Dose Route Frequency Start Date End Date Status cefTRIAXone (Rocephin) vial 500 mgIndications:Gonorrhea 500 mg IM Once 05/04/2025 05/06/20 25 Ended Active Problems Problem Noted Date Diagnosed Date [...] Encounters Date Type Department Care Team Description 05/18/2025 10:40 AM EDT Office Visit [facility] [address] [place] [phone] Joya Hernandez MD Rash (Primary Dx) 05/18/2025 10:30 AM EDT Clinical Support [facility] MED[facility] [address] [place] [address] Lily Espitia, NAHID Primary hypertension [I10] 05/18/2025 Refill [facility] [address] [place] [address] Maria Isabel North DO 05/18/2025 Travel 05/06/2025 3:00 PM EDT Clinical Support [facility] [address] [place] [address] Julia Eubanks RN Gonorrhea 05/05/2025 Travel 05/04/2025 Orders Only [facility] [address] [place] [phone] Kaylah Wilburn MD 05/04/2025 Results Follow-Up [facility] [address] [place] [phone] Kaylah Wilburn MD Chlamydia/N. Gonorrhoeae, PCR, Urine, Urinalysis, Complete, with Reflex to Culture, POCT Urinalysis 05/03/2025 6:00 PM EDT Office Visit [facility] [address] [place] [phone] Kaylah Wilburn MD Penile discharge (Primary Dx); Acute midline low back pain without sciatica 05/03/2025 Travel 04/26/2025 9:40 AM EDT Office Visit [facility] [address] [place] [phone] Maria Isabel North DO Essential hypertension (Primary [...] Pulse 95 05/18/2025 10:49 AM EDT Temperature 36.7 C (98 F) 05/18/2025 10:40 AM EDT Respiratory Rate 18 05/18/2025 10:49 AM EDT Oxygen Saturation 98% 05/18/2025 10:49 AM EDT Inhaled Oxygen Concentration - - Weight 100 kg (221 lb) 05/18/2025 10:40 AM EDT Height 170.2 cm (5' 7 ) 05/03/2025 5:28 PM EDT Body Mass Index 34.61 05/03/2025 5:28 PM EDT Plan of Treatment Upcoming Encounters Date Type Department Care Team (Late st Contact Info) Description 06/01/2025 10:00 AM EDT Clinical Support [facility] [address] [place] [address] Health Maintenance Due Date Last Done Comments CT Colonography 1970 Colonoscopy 1970 Colorectal Cancer Screening 1970 Depression Screening 1970 FIT DNA/Cologuard 1970 FIT 1970 FOBT 1970 HIV Screening 1970 Lipid Panel 1970 SDOH Screening 1970 Sigmoidoscopy 1970 Disability Screening 1970 Alcohol/Substance Use Screening 1982 Hepatitis C Screening 1988 Pneumococcal Vaccine: 50+ Years (1 of 2 - PCV) 1989 Zoster Vaccines (1 of 2) 2020 Hepatitis B Vaccines (2 of 2 - CpG 2-dose series) 01/02/2024 12/05/2023 COVID-19 Vaccine (4 - 2024-2 6 season) 2025 11/27/2023, 02/11/2021, 01/21/2021 Influenza Vaccine (#1) 2025 Tobacco Screening 05/18/2026 05/18/2025 DTaP/Tdap/Td Vaccines (2 - T d or [...] Procedure Name Priority Date/Time Associated Diagnosis Comments CULTURE, URINE, ROUTINE Routine 05/04/2025 12:00 AM EDT POCT URINALYSIS DIPSTICK Routine 05/03/2025 5:41 PM EDT Penile discharge URINALYSIS, COMPLETE, WITH REFLEX TO CULTURE Routine 05/03/2025 5:39 PM EDT Penile discharge CHLAMYDIA/TRICHOMONA S/NEISSERIA GONORRHOEAE, PCR, URINE Routine 05/03/2025 5:39 PM EDT Penile discharge from Last 3 Months Results * Culture, Urine, Routine (05/04/2025 12:00 AM EDT) Urine Urine specimen obtained by clean catch procedure / Unknown 05/04/2025 05/04/2025 Comment:UACC Narrative [facility] - 05/05/2025 9:29 AM EDT Urine Culture No growth. Specimen Source: Urine clean catch Kaylah Wilburn MD LAB MICROBIOLOGY - GENERAL ORDERABLES Final Result [facility] [address] [place] [phone] * (ABNORMAL) POCT Urinalysis (05/03/2025 5:41 PM [...] Media Lot # [id number] Lot# Expiration Date [id number] Urine 05/03/2025 5:41 PM EDT Kaylah Wilburn MD POINT OF CARE TEST ENTER/E DIT ORDERABLES Final Result * (ABNORMAL) Chlamydia/N. Gonorrhoeae, PCR, Urine (05/03/2025 5:39 PM EDT) CT PCR, Urine NOT DETECTED Not Detect. [facility] Comment:A not detected test result does [...] psychologicalconsequences. NG PCR, Urine DETECTED(A) Not Detect. [facility] Comment:As with many diagnos tic tests, [...] the ordering clinician orclinical facility to the [facility] required by state law. Urine (Urine, Random) 05/03/2025 5:39 PM EDT 05/04/2025 12:16 PM EDT Kaylah Wilburn MD LAB URINE ORDERABLES Final Result [facility] [address] [place] [phone] * (ABNORMAL) Urinalysis, Complete, with Reflex to Culture (05/03/2025 5:39 PM EDT) Color Urine Yellow [facility] Appearance Urine Turbid [facility] PH 6.0 5.0 - 9.0 [facility] Glucose Urine UA 500(A) Negative mg/dL [facility] Urine Blood Negative Negative [facility] Specific [place] - Urine >=1.030(H) 1.005 - 1.025 [facility] Urine Protein 30 (1+)(A) Neg-Trace mg/dL [facility] Urine Ketones Trace Negative mg/dL [facility] Nitrite Urine Negative Negative [facility] Leukocyte Esterase Urine Moderate (2+)(A) Negative [facility] RBC Urine 0-2 0 - 2 /HPF [facility] Urine WBC >50(A) 0 - 5 /HPF [facility] Urine Squamous Epithelial Cell 0-2 0 - 2 /HPF [facility] CALCIUM OXALATE CRYSTAL, UR Present [facility] Urine Bacteria None Seen None Seen [facility] Hyaline Casts, Urine 11-20 0 - 2 /LPF [facility] Urine 05/03/2025 5:39 PM EDT 05/04/2025 12:08 PM EDT Narrative [facility] - 05/04/2025 12:49 PM EDT [id number], Clean Catch us Kaylah Wilburn MD LAB URINE ORDERABLES Final Result [facility] [address] [place] [phone] from Last 3 Months Insurance [facility] [address] [address] [employer] HSN FULL BCBS HMO Care Teams Consumer Marketing Analyst Relationship Specialty Start Date End Date Maria Isabel North DO [address] [place] [phone] PCP - General Family Medicine 05/03/25
--- OUTSIDE RECORDS SUMMARY | 2025-05-18 14:02 | XMS_ITS | Encounter Summary ---
Author Organization [employer] Address [address] [facility] 7t [place] [address] Care Team Providers Care Aged Or Disabled Carer Name Role Phone Maria Isabel North DO Primary Care Provider Encounter Details Date Type Department Care Team (Latest Contact Info) Description 05/18/2025 Travel Social History Tobacco Use Types Packs/Day [...] Description 06/01/2025 10:00 AM EDT Clinical Support [facility] MEDIC[facility] [address] [place] [address] documented as of this encounter Visit Diagnoses Not on filedocumented in this encounter Care Teams Aged Or Disabled Carer Relationship Specialty Start Date End Date Maria Isabel North DO [address] [place] [address] PCP - General Family Medicine 05/03/25 documented as of this encounter
[2025-05-18 14:06] LABS: MANUAL DIFF FLAG NO
[2025-05-18 14:08] LABS: Hematocrit 48.1 % (42.0-52.0); Hemoglobin 15.6 g/dl (14.0-18.0); Imm Gran Abs Auto 0.03 X10*3/uL (0.00-0.03); Imm Gran Pct Auto 0.3 % (0.0-0.4); Lymphocytes Absolute Auto 2.4 X10*3/uL (1.2-4.9); Mean Corpuscular HGB Conc 32.4 g/dl (31.0-36.0); Mean Corpuscular Hemoglobin 27.7 pg (27.0-33.0); Mean Corpuscular Volume 85.4 fL (80.0-98.0); NRBC Abs Auto 0.000 X10*3/uL (0.0-0.012); NRBC Pct Auto 0.0 /100WBC (0.0-0.2); Platelet Count 258 X10*3/uL (160-400); Red Blood Count 5.63 X10*6/uL (4.60-5.80); White Blood Count 9.0 X10*3/uL (4.8-10.8)
[2025-05-18 14:09] LABS: Hematocrit 48.1 % (42.0-52.0); Hemoglobin 15.8 g/dl (14.0-18.0); Mean Corpuscular HGB Conc 32.8 g/dl (31.0-36.0); Mean Corpuscular Hemoglobin 27.8 pg (27.0-33.0); Mean Corpuscular Volume 84.7 fL (80.0-98.0); NRBC Abs Auto 0.000 X10*3/uL (0.0-0.012); NRBC Pct Auto 0.0 /100WBC (0.0-0.2); Platelet Count 240 X10*3/uL (160-400); Red Blood Count 5.68 X10*6/uL (4.60-5.80); White Blood Count 8.7 X10*3/uL (4.8-10.8)
[2025-05-18 14:14] LABS: Microalbum/Creatinine Ratio Ur 13.1 ug/mg cr (<30)
[2025-05-18 14:55] LABS: Alanine Aminotransferase 29 U/L (0-40); Albumin Level 4.7 g/dL (3.5-5.0); Alkaline Phosphatase 132 U/L (39-117); Anion Gap 12 (12-20); Aspartate Amino Transferase 34 U/L (5-37); Blood Urea Nitrogen 13 mg/dL (9-16); Calcium 9.4 mg/dL (8.4-10.2); Carbon Dioxide 31 mmol/L (22-29); Chloride 97 mmol/L (96-108); Cholesterol 182 mg/dL (<200); Estimated Glomerular Filt Rate > 60; HDL Cholesterol 33 mg/dL (>40); Potassium 4.3 mmol/L (3.3-5.1); Sodium 136 mmol/L (135-145); Thyroid Stimulating Hormone 0.63 uIU/mL (0.32-4.0); Total Protein 7.4 g/dL (6.5-8.0); Triglycerides 262 mg/dL (<150)
[2025-05-18 14:56] LABS: Cholesterol 179 mg/dL (<200); Free T4 (Free Thyroxine) 1.18 ng/dL (0.71-1.85); HDL Cholesterol 32 mg/dL (>40); Hemoglobin A1C 612.4150 umol/L; Hemoglobin A1C 637.9675 umol/L; Total Hemoglobin (HGBA1C) 5225.0712 umol/L; Total Hemoglobin (HGBA1C) 5493.2795 umol/L; Triglycerides 259 mg/dL (<150)
[2025-05-19 04:03] LABS: HBS Num1 15.52 mIU/mL (0-7.99); HBc Num1 0.11 S/CO (0.00-0.79); HBsAGNum1 0.32 S/CO (0.00-0.99); HIV Num 1 0.04 S/CO (0.00-0.99); Hepatitis B Surface Antigen Negative (Negative); ~HepC Num1 0.21 S/CO (0.00-0.79); ~Hepatitis B Surface Antibody REACTIVE (Nonreactive); ~Hepatitis C Antibody Nonreactive (Nonreactive)
[2025-05-19 04:36] LABS: HIV Num 1 0.04 S/CO (0.00-0.99); ~HepC Num1 0.19 S/CO (0.00-0.79); ~Hepatitis C Antibody Nonreactive (Nonreactive)
[2025-05-20 08:20] LABS: ~Hepatitis A Antibody IgG 8.87 S/CO (0.00-0.99)
[2025-05-21 07:58] LABS: TS Negative Control Passed; TS Panel A 0; TS Panel B 0; TS Positive Control Passed; TSpotTB Negative (Negative)
== END 2025-05-18 10:56 | disposition home or self-care (01) ==
LOC: HO.HHCL 10:55
PROVIDERS: Internal Medicine; PCP Family Medicine; Visit Provider Family Medicine
DX: Z13.1 Encounter for screening for diabetes mellitus (principal); Z13.21 Encounter for screening for nutritional disorder; I10 Essential (primary) hypertension
CPT/HCPCS: 36415; 80053; 80061; 82043; 82248; 82306; 82570; 83036; 84439; 84443; 85025; 85027; 86481; 86592; 86704; 86706; 86708; 86803; 87340; 87389

== ENCOUNTER 2025-05-18 16:13 | Emergency (ER) | payer BC, MEDICAID, SELFPAY ==
--- NOTE | 2025-05-18 16:18 | ED.GENADULT ---
HPI - General Adult General Chief complaint: Recheck/Abnormal Lab/Rx Stated complaint: High blood sugar Time Seen by Provider: 05/18/25 17:22 Source: patient, RN notes reviewed and old records reviewed Mode of arrival: ambulatory Limitations: no limitations History of Present Illness ED Provider: Aysha SAUL narrative: 55-year-old male who denies any past medical history presents for evaluation of feeling very thirsty and urinating frequently. He went to urgent care this morning and was found to have a glucose that is too high to read. ? He has no diagnosed history of diabetes but he has significant family history. He reports he recently had bronchitis and 2 weeks ago she had a for gonorrhea. He has not seen her primary doctor in 3 years Related Data Previous Rx's ?Medication ?Instructions ?Recorded blood-glucose meter (Blood Glucose #1 ea 05/18/25 Monitoring kit) metformin 1,000 mg tablet 1,000 mg PO BID #60 tabs 05/18/25 Allergies Allergy/AdvReac Type Severity Reaction Status Date / Time No Known Allergies Allergy Verified 05/18/25 16:22 Review of Systems Constitutional: Constitutional: Denies body ache(s), Denies chills, Denies fever(s) and Reports malaise Eyes: Eyes: Reports blurry vision ENT: Denies vertigo and Denies dizziness Cardiovascular: Cardiovascular: Denies chest pain, Denies syncope and Denies dyspnea on exertion Respiratory: Respiratory: Denies cough and Denies dyspnea on exertion Genitourinary: Genitourinary: Reports urinary frequency Musculoskeletal: Musculoskeletal: Denies back pain Integumentary/Breasts: Skin/Breast: Denies rash Neurologic: Denies vertigo, Denies dizziness and Denies syncope Psychiatric: Psychiatric: Denies anxiety PMFSH Social History Social History Smoked in Last 30 Days: No Use of substances other than those prescribed or required for medical reasons: No Advance Directives: No Advance Directives Information Provided: Yes Physical Exam ED Vital Signs: Vital Signs - 24 hr 05/18/25 16:21 05/18/25 18:04 Temperature 98.5 F 97.1 F Pulse Rate 92 90 Respiratory Rate 14 20 Blood Pressure 134/76 141/90 H Pulse Oximetry 98 94 Oxygen Delivery Method Room Air Room Air BMI result Body Mass Index 30.8 Const General: healthy appearing, comfortable, no acute distress, alert and awake Nutritional Appearance: well nourished Orientation/consciousness: patient oriented x3 HENMT Head: Yes normocephalic and Yes atraumatic Throat: Yes posterior oropharynx normal Eyes Eyelids: Yes eyelids normal Conjunctivae: conjunctivae normal Sclerae: sclerae normal Corneas: corneas normal Pupils: Equal, round and reactive pupils present EOM: EOMs intact bilaterally Neck Neck: Yes full ROM Resp Effort & Inspection: normal respiratory effort, able to speak in complete sentences and not labored Cardio Rate: regular rate Rhythm: regular rhythm GI Inspection: No distended Palpation (GI): Soft to palpation, not firm, nontender, no guarding and not rigid Skin General skin exam: elasticity normal Neuro General: patient oriented x3 Cranial nerves: Yes CN's II-XII intact bilaterally, Yes Equal, round and reactive pupils present and Yes Bilaterally intact EOM present Cognition (Neuro): normal cognition Extrem Other: Moving all extremities well without any obvious deformities Course Course Course Narrative: This is a rapid medical exam performed by Stewart Cano NP: Additional HPI, ROS, PE not included below will be deferred to primary provider. Patient is a 55y/o M presenting to the ED stating that he had labs drawn this am, was called and told to come to the ED for glucose >600. Plan: repeat labs Medications Administered Discontinued Medications Generic Name Dose Route Start Last Admin Trade Name Freq PRN Reason Stop Dose Admin Sodium Chloride 1,000 mls @ 999 mls/hr 05/18/25 17:30 05/18/25 19:29 Ns IV 05/18/25 19:30 Infused .Q1H1M MORRIS Infusion Insulin Human Regular 8 unit 05/18/25 19:19 05/18/25 19:27 Insulin Regular, Human 100 Unit/Ml 10 Ml Vial IVPUSH 05/18/25 19:20 8 unit ONCE ONE Administration Medical Decision Making Medical Decision Making MDM Narrative: 55-year-old male presents for evaluation of increased urinary urgency, frequency and was found to have a glucose over 600. He does not have any known history of diabetes but is apparently a diabetic. There was no evidence of DKA, his anion gap is within normal limits, he is not acidotic on his VBG. We will attempt to improve his sugar with IV fluids and insulin. I suspect either his recent bronchitis or gonorrhea diagnosis and treatment was the cause of has hyperglycemia getting out of control Differential Diagnosis Differential Diagnoses: The differential diagnosis associated with the presentation includes Hyperglycemia Diabetes HHS DKA Dehydration ANGELINA Admission/Observation Consideration of admission/observation: Escalation of care including admission/observation considered Lab Data MDM Lab Attestation statement: I reviewed the patient's lab results. No leukocytosis or anemia. The patient is a started hyponatremia but is as sodium is within normal limits once corrected for his glucose of 742. Tinnitus slightly low which is likely due to his increasing urination. 05/18/25 16:51 05/18/25 16:51 Labs: Lab Results 05/18/25 05/18/25 05/18/25 Range/Units 16:51 16:56 17:07 WBC 8.3 (4.8-10.8) X10*3/uL RBC 5.39 (4.60-5.80) X10*6/uL Hgb 14.9 (14.0-18.0) g/dl Hct 45.2 (42.0-52.0) % MCV 83.9 (80.0-98.0) fL MCH 27.6 (27.0-33.0) pg MCHC 33.0 (31.0-36.0) g/dl RDW 12.6 (11.0-16.0) % Plt Count 224 (160-400) X10*3/uL MPV 11.2 (9.4-12.4) fL Immature Gran % (Auto) 0.4 (0.0-0.4) % Neut % (Auto) 65.2 (45-73) % Lymph % (Auto) 25.8 (20-40) % [place] % (Auto) 7.3 (2-11) % Eos % (Auto) 0.7 (0-4) % Baso % (Auto) 0.6 (0-2) % Lymph # (Auto) 2.1 (1.2-4.9) X10*3/uL [place] # (Auto) 0.6 (0.1-1.2) X10*3/uL Eos # (Auto) 0.1 (0.0-0.4) X10*3/uL Baso # (Auto) 0.1 (0.0-0.2) X10*3/uL Abs Immat Gran (auto) 0.03 (0.00-0.03) X10*3/uL Absolute Neuts (auto) 5.4 (2.0-8.3) x10*3/uL Absolute Nucleated RBC 0.000 (0.0-0.012) X10*3/uL Nucleated RBC % (auto) 0.0 (0.0-0.2) /100WBC VBG pH 7.42 (7.32-7.43) VBG pCO2 40 mmHg VBG pO2 59 mmHg VBG HCO3 26 (22-26) mmol/L VBG O2 Saturation 91.0 % VBG Base Excess 2.3 mmol/L Sodium 131 L (135-145) mmol/L Potassium 4.2 (3.3-5.1) mmol/L Chloride 95 L (96-108) mmol/L Carbon Dioxide 28 (22-29) mmol/L Anion Gap 12 (12-20) BUN 14 (9-16) mg/dL Creatinine 1.11 (0.5-1.4) mg/dL Estim Creat Clear Calc 90.7 Estimated GFR > 60 POC Glucose > 600 H* (60-115) mg/dL Random Glucose 742 H* (60-115) mg/dL Calcium 9.1 (8.4-10.2) mg/dL Magnesium 2.1 (1.6-2.6) mg/dL Total Bilirubin 0.7 (0.0-1.0) mg/dL AST 28 (5-37) U/L ALT 29 (0-40) U/L Alkaline Phosphatase 125 H (39-117) U/L Total Protein 7.0 (6.5-8.0) g/dL Albumin 4.4 (3.5-5.0) g/dL Beta-Hydroxybutyrate 0.38 H (0.02-0.27) mmol/L Urine Color Urine Appearance Urine pH (5.0-9.0) Ur Specific [place] (1.005-1.025) Urine Protein (Neg-Trace) mg/dL Urine Glucose (UA) (Negative) mg/dL Urine Ketones (Negative) mg/dL Urine Blood (Negative) Urine Nitrite (Negative) Ur Leukocyte Esterase (Negative) Urine RBC (0-2) /HPF Urine WBC (0-5) /HPF Ur Squamous Epith Cells (0-2) /HPF Urine Bacteria (None Seen) Hyaline Casts (0-2) /LPF 05/18/25 05/18/25 05/18/25 Range/Units 17:14 17:32 18:40 WBC (4.8-10.8) X10*3/uL RBC (4.60-5.80) X10*6/uL Hgb (14.0-18.0) g/dl Hct (42.0-52.0) % MCV (80.0-98.0) fL MCH (27.0-33.0) pg MCHC (31.0-36.0) g/dl RDW (11.0-16.0) % Plt Count (160-400) X10*3/uL MPV (9.4-12.4) fL Immature Gran % (Auto) (0.0-0.4) % Neut % (Auto) (45-73) % Lymph % (Auto) (20-40) % [place] % (Auto) (2-11) % Eos % (Auto) (0-4) % Baso % (Auto) (0-2) % Lymph # (Auto) (1.2-4.9) X10*3/uL [place] # (Auto) (0.1-1.2) X10*3/uL Eos # (Auto) (0.0-0.4) X10*3/uL Baso # (Auto) (0.0-0.2) X10*3/uL Abs Immat Gran (auto) (0.00-0.03) X10*3/uL Absolute Neuts (auto) (2.0-8.3) x10*3/uL Absolute Nucleated RBC (0.0-0.012) X10*3/uL Nucleated RBC % (auto) (0.0-0.2) /100WBC VBG pH (7.32-7.43) VBG pCO2 mmHg VBG pO2 mmHg VBG HCO3 (22-26) mmol/L VBG O2 Saturation % VBG Base Excess mmol/L Sodium (135-145) mmol/L Potassium (3.3-5.1) mmol/L Chloride (96-108) mmol/L Carbon Dioxide (22-29) mmol/L Anion Gap (12-20) BUN (9-16) mg/dL Creatinine (0.5-1.4) mg/dL Estim Creat Clear Calc Estimated GFR POC Glucose > 600 H* 511 H* (60-115) mg/dL Random Glucose (60-115) mg/dL Calcium (8.4-10.2) mg/dL Magnesium (1.6-2.6) mg/dL Total Bilirubin (0.0-1.0) mg/dL AST (5-37) U/L ALT (0-40) U/L Alkaline Phosphatase (39-117) U/L Total Protein (6.5-8.0) g/dL Albumin (3.5-5.0) g/dL Beta-Hydroxybutyrate (0.02-0.27) mmol/L Urine Color Yellow Urine Appearance Clear Urine pH 6.5 (5.0-9.0) Ur Specific [place] >= 1.030 H (1.005-1.025) Urine Protein Negative (Neg-Trace) mg/dL Urine Glucose (UA) >=1000 H (Negative) mg/dL Urine Ketones Negative (Negative) mg/dL Urine Blood Negative (Negative) Urine Nitrite Negative (Negative) Ur Leukocyte Esterase Negative (Negative) Urine RBC 0-2 (0-2) /HPF Urine WBC 0-5 (0-5) /HPF Ur Squamous Epith Cells 0-2 (0-2) /HPF Urine Bacteria None Seen (None Seen) Hyaline Casts 0-2 (0-2) /LPF 05/18/25 Range/Units 20:00 WBC (4.8-10.8) X10*3/uL RBC (4.60-5.80) X10*6/uL Hgb (14.0-18.0) g/dl Hct (42.0-52.0) % MCV (80.0-98.0) fL MCH (27.0-33.0) pg MCHC (31.0-36.0) g/dl RDW (11.0-16.0) % Plt Count (160-400) X10*3/uL MPV (9.4-12.4) fL Immature Gran % (Auto) (0.0-0.4) % Neut % (Auto) (45-73) % Lymph % (Auto) (20-40) % [place] % (Auto) (2-11) % Eos % (Auto) (0-4) % Baso % (Auto) (0-2) % Lymph # (Auto) (1.2-4.9) X10*3/uL [place] # (Auto) (0.1-1.2) X10*3/uL Eos # (Auto) (0.0-0.4) X10*3/uL Baso # (Auto) (0.0-0.2) X10*3/uL Abs Immat Gran (auto) (0.00-0.03) X10*3/uL Absolute Neuts (auto) (2.0-8.3) x10*3/uL Absolute Nucleated RBC (0.0-0.012) X10*3/uL Nucleated RBC % (auto) (0.0-0.2) /100WBC VBG pH (7.32-7.43) VBG pCO2 mmHg VBG pO2 mmHg VBG HCO3 (22-26) mmol/L VBG O2 Saturation % VBG Base Excess mmol/L Sodium (135-145) mmol/L Potassium (3.3-5.1) mmol/L Chloride (96-108) mmol/L Carbon Dioxide (22-29) mmol/L Anion Gap (12-20) BUN (9-16) mg/dL Creatinine (0.5-1.4) mg/dL Estim Creat Clear Calc Estimated GFR POC Glucose 386 H* (60-115) mg/dL Random Glucose (60-115) mg/dL Calcium (8.4-10.2) mg/dL Magnesium (1.6-2.6) mg/dL Total Bilirubin (0.0-1.0) mg/dL AST (5-37) U/L ALT (0-40) U/L Alkaline Phosphatase (39-117) U/L Total Protein (6.5-8.0) g/dL Albumin (3.5-5.0) g/dL Beta-Hydroxybutyrate (0.02-0.27) mmol/L Urine Color Urine Appearance Urine pH (5.0-9.0) Ur Specific [place] (1.005-1.025) Urine Protein (Neg-Trace) mg/dL Urine Glucose (UA) (Negative) mg/dL Urine Ketones (Negative) mg/dL Urine Blood (Negative) Urine Nitrite (Negative) Ur Leukocyte Esterase (Negative) Urine RBC (0-2) /HPF Urine WBC (0-5) /HPF Ur Squamous Epith Cells (0-2) /HPF Urine Bacteria (None Seen) Hyaline Casts (0-2) /LPF Discharge Plan Discharge Clinical Impression: Diabetes mellitus Patient Disposition: Home, Self-Care Instructions: Diabetes and Exercise (ED), How to Check your Blood Sugar (ED), Type 2 Diabetes Management for Adults (ED) Additional Instructions: You have diabetes. Take metformin 1 g b.i.d. In his important that you follow up with endocrinology, as you may need to start insulin if your glucose is not controlled with metformin alone Prescriptions: New metformin 1,000 mg tablet 1,000 mg PO BID Qty: 60 0RF (DME) blood-glucose meter [Blood Glucose Monitoring] Kit See Rx Instructions .Route Qty: 1 0RF Rx Instructions: As directed Referrals: [facility] Endocrinology [Provider Group] Referral Note: new diabetes diagnosis Print Language: Mongolian
[2025-05-18 16:21] VITALS: BP 134/76; PULSE 92; RESP 14; TEMP 36.9; O2SAT 98; BMI 30.8
[2025-05-18 16:56] LABS: MANUAL DIFF FLAG NO
[2025-05-18 16:57] LABS: Hematocrit 45.2 % (42.0-52.0); Hemoglobin 14.9 g/dl (14.0-18.0); Imm Gran Abs Auto 0.03 X10*3/uL (0.00-0.03); Imm Gran Pct Auto 0.4 % (0.0-0.4); Lymphocytes Absolute Auto 2.1 X10*3/uL (1.2-4.9); Mean Corpuscular HGB Conc 33.0 g/dl (31.0-36.0); Mean Corpuscular Hemoglobin 27.6 pg (27.0-33.0); Mean Corpuscular Volume 83.9 fL (80.0-98.0); NRBC Abs Auto 0.000 X10*3/uL (0.0-0.012); NRBC Pct Auto 0.0 /100WBC (0.0-0.2); Platelet Count 224 X10*3/uL (160-400); Red Blood Count 5.39 X10*6/uL (4.60-5.80); White Blood Count 8.3 X10*3/uL (4.8-10.8)
[2025-05-18 17:03] LABS: VBG HCO3 26 mmol/L (22-26); VBG O2 % Saturation 91.0 %
[2025-05-18 17:09] LABS: Venous Blood Gas Refer to POC result
[2025-05-18 17:19] LABS: Glucose, Whole Blood > 600 mg/dL (60-115)
[2025-05-18 17:19] LABS: Alanine Aminotransferase 29 U/L (0-40); Albumin Level 4.4 g/dL (3.5-5.0); Alkaline Phosphatase 125 U/L (39-117); Anion Gap 12 (12-20); Aspartate Amino Transferase 28 U/L (5-37); Blood Urea Nitrogen 14 mg/dL (9-16); Calcium 9.1 mg/dL (8.4-10.2); Carbon Dioxide 28 mmol/L (22-29); Chloride 95 mmol/L (96-108); Creatinine Clr Calc Pharmacy 90.7; Estimated Glomerular Filt Rate > 60; Magnesium 2.1 mg/dL (1.6-2.6); Potassium 4.2 mmol/L (3.3-5.1); Sodium 131 mmol/L (135-145); Total Protein 7.0 g/dL (6.5-8.0)
[2025-05-18 17:19] LABS: Glucose, Whole Blood > 600 mg/dL (60-115)
--- NOTE | 2025-05-18 17:25 | MHC.EDTECH ---
poc read >600 x2, QC was performed, PASSED, and docked. RN made aware
[2025-05-18 17:40] LABS: Appearance Urine Clear; Glucose Urine UA >=1000 mg/dL (Negative); PH 6.5 (5.0-9.0); Specific Gravity - Urine >= 1.030 (1.005-1.025); UMIC TRIGGER UACC YES
[2025-05-18 18:04] VITALS: BP 141/90; PULSE 90; RESP 20; TEMP 36.2; O2SAT 94
[2025-05-18 18:43] LABS: Glucose, Whole Blood 511 mg/dL (60-115)
[2025-05-18 20:03] LABS: Glucose, Whole Blood 386 mg/dL (60-115)
[2025-05-18 20:16] VITALS: BP 141/90; PULSE 90; RESP 20; TEMP 36.2; O2SAT 94
== END 2025-05-18 20:38 | disposition home or self-care (01) ==
PROVIDERS: Physician Assistant; Registered Nurse Emergency; Emergency Provider Student in an Organized Health Care Education/Training Program; PCP Family Medicine
DX: E11.65 Type 2 diabetes mellitus with hyperglycemia (principal); Z79.899 Other long term (current) drug therapy
CPT/HCPCS: 36415; 80053; 81001; 82010; 82803; 82947; 83735; 85025; 96361; 96374; 99284

== ENCOUNTER 2025-05-19 17:08 | Emergency (ER) | payer BC, MEDICAID, SELFPAY ==
--- OUTSIDE RECORDS SUMMARY | 2025-05-18 10:30 | XMS_ITS | Encounter Summary ---
Author Organization [employer] Address [address] [facility] 7t [place] [address] Care Team Providers Care Handyperson Name Role Phone CarmenMaria Isabel hawkins Primary Care Provider [phone] Reason for Visit * Reason Comments Blood Pressure Check Encounter Details Date Type Department Care Team (Latest Contact Info) Description 05/18/2025 10:30 AM EDT Clinical Support [facility] [address] [place], [place] [phone] Lily Espitia RN [address] [place], [place] [phone] Primary hypertension [I10] Social History Tobacco Use Types Packs/Day Years Used Date Smoking Tobacco: Every Day Cigarettes Tobacco Cessation:Ready to Q uit: No; Counseling Given: Yes Sex and Gender Information Value Date Recorded Sex Assigned at Male 10/12/2024 10:31 AM EST Legal Sex Male 10:51 AM EST Gender Identity Male 10/12/2024 10:31 AM EST Sexual Orientation Straight 10/12/2024 10 :31 AM EST documented as of this encounter Last Filed Vital Signs Vital Sign Reading Time Taken Comments Blood Pressure 152/94 05/18/2025 10:50 AM EDT Pulse 95 05/18/2025 10:49 AM EDT Temperature - - Respiratory Rate 18 05/18/2025 10:49 AM EDT Oxygen Saturation 98% 05/18/2025 10:49 AM EDT Inhaled Oxygen Concentration - - Weight - - Height - - Body Mass Index - - documented in this encounter Progress Notes * Lily Espitia RN - 05/18/2025 10:30 AM EDT S: Pt here for BP check nurse visit. At last appointment 04/26/25, pt's BP noted to be 152/104. Recommendations made on that day were to restart amlodipine daily and return to clinic in 2-3 weeks for BP check. Pt is currently taking amlodipine 10mg daily. Today, pt denies any shortness of breath, chest pain, dizziness, or headaches. Pt reports noncompliance with BP medication regimen (at times takes medication BID instead of how Rx'd), confirms that BP medications were taken today at 6am. Patientreports he takes amlodipine 10mg BID roughly 3x per week (when BP is >150/100). RN educated patient to NOT continue self- medicating as it can cause several complications. Patient reports he smokes 1 pack of cigarettes per day. Patient also reports he has noticed his vision has been blurry recently and would like to have an eye exam. Patient advised RN will refer patient to [facility] eyecare and he will receive a call with appointment date and time. O: Left Arm BP 148/92, Right Arm BP 152/94, Pulse 95, RR 18/min and SpO2 98%. Heart tones regular, lungs clear bilaterally, no edema noted, skin warm pink and dry. Patient did bring home ARJUN machine into clinic and last 30 readings were as follows: 152/92 166/110 167/107 149/93 155/101 170/116 144/83 154/92 141/87 173/97 162/89 187/109 189/109 164/92 140/85 148/85 197/88 118/95 111/87 152/100 161/91 164/88 156/92 172/91 131/87 130/83 142/80 135/82 168/95 144/78 145/91 A: Noncompliance with BP medication regimen BP not at goal of <140/90 Reinforcement of Lifestyle modification including low sodium diet and exercise. P: Consulted with provider (Dr. North) regarding BP findings. Orders at this time are to continueamlodipine 10mg daily, START losartan 25mg daily and return to clinic in 2 weeks for RN BP check. Pt advised to continue taking meds as directed and follow a low fat/sodium diet and exercise as tolerated. Pt to f/u with PCP as needed. Pt agrees with plan and verbalized understanding. Lily Espitia RN documented in this encounter Plan of Treatment Upcoming Encounters Date Type Department Care Team (Late st Contact Info) Description 06/01/2025 10:00 AM EDT Clinical Support [facility] [address] [place] [address] documented as of this encounter Visit Diagnoses Diagnosis Primary hypertension [I10] Unspecified essential hypertension documented in this encounter Care Teams Handyperson Relationship Specialty Start Date End Date Maria Isabel North DO [address] [place] [address] PCP - General Family Medicine 05/03/25 documented as of this encounter
--- OUTSIDE RECORDS SUMMARY | 2025-05-18 10:40 | XMS_ITS | Encounter Summary ---
Author Organization [employer] Address [address] [facility] [address] [place] [address] Care Team Providers Care Molding And Trim Installer Name Role Phone Mary AnneMaria Isabel Primary Care Provider [phone] Encounter Details Date Type Department Care Team (Late st Contact Info) Description 05/18/2025 10:40 AM EDT Office Visit [facility] [address] [place] [address] Joya Hernandez MD [address] [place] [address] Rash (Primary Dx) Social History Tobacco Use [...] Description 06/01/2025 10:00 AM EDT Clinical Support [facility] MEDICINE [address] [phone] documented as of this encounter Visit Diagnoses Diagnosis Rash- Primary Rash and other nonspecific skin eruption documented in this encounter Care Teams Molding And Trim Installer Relationship Specialty Start Date End Date Maria Isabel North DO [address] [place] [phone] PCP - General Family Medicine 05/03/25 documented as of this encounter
--- NOTE | 2025-05-19 17:33 | ED.GENADULT ---
HPI - General Adult General Chief complaint: General Medical Stated complaint: increased blood sugar Time Seen by Provider: 05/19/25 20:35 Source: patient Mode of arrival: ambulatory Limitations: no limitations History of Present Illness ED Provider: Dr. Lockett [facility] narrative: 55-year-old male history of hyperglycemia and diabetes presented hospital today for evaluation of elevated blood sugar. His sugar was noted to be elevated at above 500. Patient states he is increasingly thirsty and P and multiple time throughout the day. Patient has been taking his metformin without any alleviation of his blood sugar at this time. He does not have a primary care doctor. Denies any other complaint at this time denies any nausea vomiting fever or abdominal pain. Related Data Previous Rx's ?Medication ?Instructions ?Recorded blood-glucose meter (Blood Glucose #1 ea 05/18/25 Monitoring kit) metformin 1,000 mg tablet 1,000 mg PO BID #60 tabs 05/18/25 alcohol swabs 1 pad topical QIDACHS #100 ea 05/20/25 blood sugar diagnostic (FreeStyle #100 ea 05/20/25 Lite Strips) blood-glucose meter (FreeStyle #1 ea 05/20/25 Lite Meter kit) insulin glargine 100 unit/mL (3 10 unit (0.1 mL) subcut DAILY #15 05/20/25 mL) subcutaneous pen (Lantus mL Solostar U-100 Insulin) insulin lispro 100 unit/mL 0 sliding scale dose subcut 05/20/25 subcutaneous pen (Humalog KwikPen QIDACHS #15 mL (U-100) Insulin) lancets 28 gauge (FreeStyle #100 ea 05/20/25 Lancets) pen needle, diabetic 32 gauge x #100 ea 05/20/25 1/4 Allergies Allergy/AdvReac Type Severity Reaction Status Date / Time No Known Allergies Allergy Verified 05/19/25 17:38 Review of Systems Review of Systems: Pertinent review of systems as mentioned in HPI. All other system otherwise negative. [facility] Past Medical History [facility] Narrative: Medical history as mentioned in [facility] Social History Social History Advance Directives: No Advance Directives Information Provided: Yes Do you have a plan to hurt others: No Plan Physical Exam ED Exam Exam: General: Pleasant, no distress, interacting appropriately Head: Normacephalic, atraumatic ENT: oral mucosa moist, neck supple, no tracheal deviation Cardiovascular: regular rate, regular rhythm, no murmurs, rubbing, gallops Respiratory: CTAB, no wheeze, rales, rhonchi Gastrointestinal: Soft, non distended, non tender, non guarding Extremities: No limb pain or swelling, no calf tenderness Neurological: Awake and alert, no facial droop noted Skin: Warm and dry Psychiatric: Appropriate mood and thoughts Vital Signs: Vital Signs - 24 hr 05/19/25 17:34 05/19/25 22:24 05/20/25 01:38 Temperature 98.4 F 97.4 F 98.0 F Pulse Rate 87 83 84 Respiratory Rate 18 12 16 Blood Pressure 139/70 156/100 H 128/89 Pulse Oximetry 95 93 94 Oxygen Delivery Method Room Air Room Air Room Air BMI result Body Mass Index 36.1 Course Course Course Narrative: This is an RME: Additional HPI, ROS, PE not included below will be deferred to primary provider. RME assessment and note performed by: Cora Andino PA-C This is a [id number]-male who presenting to the Er with complaints of dizzy, blurred vision x 2 days. Seen yesterday and was diagnosed with diabetes yesterday from the ER. Reports ongoing dizziness. Plan: Labs, UA further ER eval needed Medications Administered Discontinued Medications Generic Name Dose Route Start Last Admin Trade Name Freq PRN Reason Stop Dose Admin Lactated Ringer's 1,000 mls @ 999 mls/hr 05/19/25 21:15 05/19/25 23:15 Lr IV 05/19/25 22:15 Infused .Q1H1M MORRIS Infusion Insulin Human Regular 5 unit 05/19/25 21:36 05/19/25 21:57 Insulin Regular, Human 100 Unit/Ml 10 Ml Vial IVPUSH 05/19/25 21:37 5 unit ONCE ONE Administration Insulin Human Regular 4 unit 05/20/25 00:01 05/20/25 00:34 Insulin Regular, Human 100 Unit/Ml 10 Ml Vial IVPUSH 05/20/25 00:02 2 unit ONCE ONE Administration Medical Decision Making Medical Decision Making MDM Narrative: This is a 55-year-old male history of hyperglycemia presented hospital today for evaluation of uncontrolled blood sugar. Lab work were obtained to assess for any signs . The patient has slight leukocytosis 11.0. Patient does have slight hyperkalemia at 5.2. Blood sugar of 570. We will plan to give patient a bolus IV fluid. We will plan to give patient 5 units of IV insulin and reassess his sugar level. Patient has no sign of metabolic acidosis. I do not think patient has a DKA at this time. Patient's glucose has improved to 300 after IV insulin. Patient states he is feels much better. We will plan to discharge patient on Lantus. Glucometer and strips and needles will be sent off for the patient. Primary care doctor referral will be provided the patient. Consult patient on diabetic care. Patient will be discharged at this time. Differential Diagnosis Differential Diagnoses: The differential diagnosis associated with the presentation includes Diabetes, elevated blood sugar, hyperglycemia. DKA Lab Data MDM Lab Attestation statement: I reviewed the patient's lab results. 05/19/25 18:58 05/19/25 23:47 Labs: Lab Results 05/19/25 05/19/25 05/19/25 Range/Units 17:33 18:01 18:08 WBC (4.8-10.8) X10*3/uL RBC (4.60-5.80) X10*6/uL Hgb (14.0-18.0) g/dl Hct (42.0-52.0) % MCV (80.0-98.0) fL MCH (27.0-33.0) pg MCHC (31.0-36.0) g/dl RDW (11.0-16.0) % Plt Count (160-400) X10*3/uL MPV (9.4-12.4) fL Immature Gran % (Auto) (0.0-0.4) % Neut % (Auto) (45-73) % Lymph % (Auto) (20-40) % [place] % (Auto) (2-11) % Eos % (Auto) (0-4) % Baso % (Auto) (0-2) % Lymph # (Auto) (1.2-4.9) X10*3/uL [place] # (Auto) (0.1-1.2) X10*3/uL Eos # (Auto) (0.0-0.4) X10*3/uL Baso # (Auto) (0.0-0.2) X10*3/uL Abs Immat Gran (auto) (0.00-0.03) X10*3/uL Absolute Neuts (auto) (2.0-8.3) x10*3/uL Absolute Nucleated RBC (0.0-0.012) X10*3/uL Nucleated RBC % (auto) (0.0-0.2) /100WBC VBG pH 7.41 (7.32-7.43) VBG pCO2 46 mmHg VBG pO2 32 mmHg VBG HCO3 29 H (22-26) mmol/L VBG O2 Saturation 51.0 % VBG Base Excess 4.3 mmol/L Sodium 134 L (135-145) mmol/L Potassium 5.2 H D (3.3-5.1) mmol/L Chloride 101 (96-108) mmol/L Carbon Dioxide 26 (22-29) mmol/L Anion Gap 12 (12-20) BUN 13 (9-16) mg/dL Creatinine 1.08 (0.5-1.4) mg/dL Estim Creat Clear Calc 86.1 Estimated GFR > 60 POC Glucose 515 H* (60-115) mg/dL Random Glucose 570 H* (60-115) mg/dL Calcium 9.1 (8.4-10.2) mg/dL Magnesium 2.2 (1.6-2.6) mg/dL Total Bilirubin 0.5 (0.0-1.0) mg/dL Direct Bilirubin 0.1 (0.0-0.5) mg/dL AST 37 (5-37) U/L ALT 26 (0-40) U/L Alkaline Phosphatase 115 (39-117) U/L Troponin I High Sens < 2.7 (<3.5-35.0) ng/L Total Protein 6.5 (6.5-8.0) g/dL Albumin 4.1 (3.5-5.0) g/dL Beta-Hydroxybutyrate 0.11 (0.02-0.27) mmol/L Ethyl Alcohol < 10 mg/dL 05/19/25 05/19/25 05/19/25 Range/Units 18:58 23:47 23:57 WBC 11.0 H (4.8-10.8) X10*3/uL RBC 5.21 (4.60-5.80) X10*6/uL Hgb 14.8 (14.0-18.0) g/dl Hct 43.7 (42.0-52.0) % MCV 83.9 (80.0-98.0) fL MCH 28.4 (27.0-33.0) pg MCHC 33.9 (31.0-36.0) g/dl RDW 12.4 (11.0-16.0) % Plt Count 229 (160-400) X10*3/uL MPV 11.2 (9.4-12.4) fL Immature Gran % (Auto) 0.4 (0.0-0.4) % Neut % (Auto) 65.9 (45-73) % Lymph % (Auto) 26.1 (20-40) % [place] % (Auto) 5.9 (2-11) % Eos % (Auto) 1.3 (0-4) % Baso % (Auto) 0.4 (0-2) % Lymph # (Auto) 2.9 (1.2-4.9) X10*3/uL [place] # (Auto) 0.7 (0.1-1.2) X10*3/uL Eos # (Auto) 0.1 (0.0-0.4) X10*3/uL Baso # (Auto) 0.0 (0.0-0.2) X10*3/uL Abs Immat Gran (auto) 0.04 H (0.00-0.03) X10*3/uL Absolute Neuts (auto) 7.3 (2.0-8.3) x10*3/uL Absolute Nucleated RBC 0.000 (0.0-0.012) X10*3/uL Nucleated RBC % (auto) 0.0 (0.0-0.2) /100WBC VBG pH (7.32-7.43) VBG pCO2 mmHg VBG pO2 mmHg VBG HCO3 (22-26) mmol/L VBG O2 Saturation % VBG Base Excess mmol/L Sodium 138 (135-145) mmol/L Potassium 4.1 D (3.3-5.1) mmol/L Chloride 105 (96-108) mmol/L Carbon Dioxide 26 (22-29) mmol/L Anion Gap 11 L (12-20) BUN 10 (9-16) mg/dL Creatinine 0.83 (0.5-1.4) mg/dL Estim Creat Clear Calc 112.1 Estimated GFR > 60 POC Glucose 344 H (60-115) mg/dL Random Glucose 361 H* (60-115) mg/dL Calcium 8.8 (8.4-10.2) mg/dL Magnesium (1.6-2.6) mg/dL Total Bilirubin 0.4 (0.0-1.0) mg/dL Direct Bilirubin (0.0-0.5) mg/dL AST 23 (5-37) U/L ALT 24 (0-40) U/L Alkaline Phosphatase 103 (39-117) U/L Troponin I High Sens (<3.5-35.0) ng/L Total Protein 6.0 L (6.5-8.0) g/dL Albumin 3.8 (3.5-5.0) g/dL Beta-Hydroxybutyrate (0.02-0.27) mmol/L Ethyl Alcohol mg/dL 05/20/25 Range/Units 01:49 WBC (4.8-10.8) X10*3/uL RBC (4.60-5.80) X10*6/uL Hgb (14.0-18.0) g/dl Hct (42.0-52.0) % MCV (80.0-98.0) fL MCH (27.0-33.0) pg MCHC (31.0-36.0) g/dl RDW (11.0-16.0) % Plt Count (160-400) X10*3/uL MPV (9.4-12.4) fL Immature Gran % (Auto) (0.0-0.4) % Neut % (Auto) (45-73) % Lymph % (Auto) (20-40) % [place] % (Auto) (2-11) % Eos % (Auto) (0-4) % Baso % (Auto) (0-2) % Lymph # (Auto) (1.2-4.9) X10*3/uL [place] # (Auto) (0.1-1.2) X10*3/uL Eos # (Auto) (0.0-0.4) X10*3/uL Baso # (Auto) (0.0-0.2) X10*3/uL Abs Immat Gran (auto) (0.00-0.03) X10*3/uL Absolute Neuts (auto) (2.0-8.3) x10*3/uL Absolute Nucleated RBC (0.0-0.012) X10*3/uL Nucleated RBC % (auto) (0.0-0.2) /100WBC VBG pH (7.32-7.43) VBG pCO2 mmHg VBG pO2 mmHg VBG HCO3 (22-26) mmol/L VBG O2 Saturation % VBG Base Excess mmol/L Sodium (135-145) mmol/L Potassium (3.3-5.1) mmol/L Chloride (96-108) mmol/L Carbon Dioxide (22-29) mmol/L Anion Gap (12-20) BUN (9-16) mg/dL Creatinine (0.5-1.4) mg/dL Estim Creat Clear Calc Estimated GFR POC Glucose 306 H (60-115) mg/dL Random Glucose (60-115) mg/dL Calcium (8.4-10.2) mg/dL Magnesium (1.6-2.6) mg/dL Total Bilirubin (0.0-1.0) mg/dL Direct Bilirubin (0.0-0.5) mg/dL AST (5-37) U/L ALT (0-40) U/L Alkaline Phosphatase (39-117) U/L Troponin I High Sens (<3.5-35.0) ng/L Total Protein (6.5-8.0) g/dL Albumin (3.5-5.0) g/dL Beta-Hydroxybutyrate (0.02-0.27) mmol/L Ethyl Alcohol mg/dL Chronic Conditions Patient?s care impacted by: Diabetes Discharge Plan Discharge Clinical Impression: Diabetes Qualifiers: Diabetes mellitus type: type 2 Diabetes mellitus adjunct faculty for medical terminology insulin use: unspecified adjunct faculty for medical terminology insulin use status Diabetes mellitus complication status: without complication Qualified Code(s): E11.9 - Type 2 diabetes mellitus without complications Patient Disposition: Home, Self-Care Instructions: How to Give an Insulin Injection (ED), Diabetes and Nutrition (ED), How to Check your Blood Sugar (ED) Prescriptions: New (DME) FreeStyle Lite Strips Strip Qty: 100 0RF Rx Instructions: Test four times a day or as directed. (DME) blood-glucose meter [FreeStyle Lite Meter] Kit Qty: 1 0RF Rx Instructions: As Directed alcohol swabs Pads, Medicated 1 pad TOPICAL QIDACHS Qty: 100 0RF Rx Instructions: Use four times a day or as directed. insulin lispro [Humalog KwikPen Insulin] 100 unit/mL insulin pen 0 sliding scale dose SUBCUT QIDACHS Qty: 15 0RF Rx Instructions: Blood Sugar: <150 - 0 units 151-200 - 2 units 201-250 - 4 units 251-300 - 6 units 301-350 - 8 units >350 - 10 units insulin glargine [Lantus Solostar U-100 Insulin] 100 unit/mL (3 mL) insulin pen 10 unit SUBCUT DAILY Qty: 15 0RF (DME) pen needle, diabetic 32 gauge x 1/4 needle Qty: 100 0RF Rx Instructions: Use four times a day or as directed. (DME) lancets [FreeStyle Lancets] 28 gauge misc Qty: 100 0RF Rx Instructions: Test four times a day or as directed. No Action metformin 1,000 mg tablet 1,000 mg PO BID Qty: 60 0RF (DME) blood-glucose meter [Blood Glucose Monitoring] Kit See Rx Instructions .Route Qty: 1 0RF Rx Instructions: As directed Referrals: [facility] [place] [facility] [Provider Group, Internal Medicine] Clinical Impression: Diabetes Print Language: Maltese
[2025-05-19 17:34] VITALS: BP 139/70; PULSE 87; RESP 18; TEMP 36.9; O2SAT 95; BMI 36.1
--- NOTE | 2025-05-19 17:35 | ECG_ITS ---
Test Reason : dizziness Blood Pressure : */* mmHG Vent. Rate : 92 BPM Atrial Rate : 92 BPM P-R Int : 164 ms QRS Dur : 84 ms QT Int : 344 ms P-R-T Axes : 48 -13 22 degrees QTcB Int : 425 ms Normal sinus rhythm Inferior infarct , age undetermined Abnormal ECG No previous ECGs available Referred By: Cora Andino Electronically Signed By: Howard Villalba
[2025-05-19 17:45] LABS: Glucose, Whole Blood 515 mg/dL (60-115)
[2025-05-19 18:17] LABS: VBG HCO3 29 mmol/L (22-26); VBG O2 % Saturation 51.0 %
[2025-05-19 18:18] LABS: Venous Blood Gas Refer to POC result
[2025-05-19 18:35] LABS: Alanine Aminotransferase 26 U/L (0-40); Albumin Level 4.1 g/dL (3.5-5.0); Alkaline Phosphatase 115 U/L (39-117); Anion Gap 12 (12-20); Aspartate Amino Transferase 37 U/L (5-37); Blood Urea Nitrogen 13 mg/dL (9-16); Calcium 9.1 mg/dL (8.4-10.2); Carbon Dioxide 26 mmol/L (22-29); Chloride 101 mmol/L (96-108); Creatinine Clr Calc Pharmacy 86.1; Estimated Glomerular Filt Rate > 60; Magnesium 2.2 mg/dL (1.6-2.6); Potassium 5.2 mmol/L (3.3-5.1); Sodium 134 mmol/L (135-145); Total Protein 6.5 g/dL (6.5-8.0)
[2025-05-19 18:39] LABS: Troponin-I High Sensitivity < 2.7 ng/L (<3.5-35.0)
[2025-05-19 19:01] LABS: MANUAL DIFF FLAG NO
[2025-05-19 19:15] LABS: Hematocrit 43.7 % (42.0-52.0); Hemoglobin 14.8 g/dl (14.0-18.0); Imm Gran Abs Auto 0.04 X10*3/uL (0.00-0.03); Imm Gran Pct Auto 0.4 % (0.0-0.4); Lymphocytes Absolute Auto 2.9 X10*3/uL (1.2-4.9); Mean Corpuscular HGB Conc 33.9 g/dl (31.0-36.0); Mean Corpuscular Hemoglobin 28.4 pg (27.0-33.0); Mean Corpuscular Volume 83.9 fL (80.0-98.0); NRBC Abs Auto 0.000 X10*3/uL (0.0-0.012); NRBC Pct Auto 0.0 /100WBC (0.0-0.2); Platelet Count 229 X10*3/uL (160-400); Red Blood Count 5.21 X10*6/uL (4.60-5.80); White Blood Count 11.0 X10*3/uL (4.8-10.8)
--- OUTSIDE RECORDS SUMMARY | 2025-05-19 20:37 | XMS_ITS | Encounter Summary ---
Author Organization [employer] Address [address] [facility] [address] [place] [address] Care Team Providers Care Accounts Clerk Name Role Phone Maria Isabel North DO Primary Care Provider [phone] Reason for Visit * Reason Onset Date Comments Med Refill 05/18/2025 Encounter Details Date Type Department Care Team (Late st Contact Info) Description 05/18/2025 Refill [facility] [address] [place] [id number] Maria Isabel North DO [address] [place], [place] [phone] Social History Tobacco Use Types Packs/Day Years [...] Description 06/01/2025 10:00 AM EDT Clinical Support [facility] [address] [place] [address] [phone] documented as of this encounter Visit Diagnoses Not on filedocumented in this encounter Care Teams Accounts Clerk Relationship Specialty Start Date End Date Maria Isabel North DO [address] [place], [place] [phone] PCP - General Family Medicine 05/03/25 documented as of this encounter
--- OUTSIDE RECORDS SUMMARY | 2025-05-19 20:37 | XMS_ITS | Encounter Summary ---
Author Organization [employer] Address [address] [facility] [address] [place] [address] Care Team Providers Care Kettle Coordinator Name Role Phone Maria Isabel North DO Primary Care Provider [phone] Encounter Details Date Type Department Care Team [...] Description 06/01/2025 10:00 AM EDT Clinical Support [facility] [address] [place] [address] documented as of this encounter Visit Diagnoses Not on filedocumented in this encounter Care Teams Kettle Coordinator Relationship Specialty Start Date End Date Maria Isabel North DO [address] [place] [address] PCP - General Family Medicine 05/03/25 documented as of this encounter
--- OUTSIDE RECORDS SUMMARY | 2025-05-19 20:37 | XMS_ITS | Encounter Summary ---
Author Organization [employer] Address [address] [facility] [address] [place] [address] Care Team Providers Care Lumber Carrier Name Role Phone Maria Isabel North DO Primary Care Provider [phone] Reason for Visit * Reason Onset Date Comments CRITICAL LAB 05/18/2025 Encounter Details Date Type Department Care Team (Late st Contact Info) Description 05/18/2025 Telephone [facility] [address] [place], [place] [phone] Maria Isabel North DO [address] [place], [place] [phone] CRITICAL LAB Social History Tobacco Use Types Packs/Day Years [...] Encounter - Lily Espitia RN - 05/18/2025 3:10 PM EDT Noted. Patient is new diabetic with A1c of 12.8. RN discussed with PCP who recommends patient should report to the ED as soon as possible for evaluation and treatment. TC placed to [phone] to inform patient of new diabetes diagnosis and BS reading of 604. Patient advised he needs to report to the ED immediately for proper evaluation and treatment. Patient verbalized understanding and reports he will seek [facility] now. Patient advised to call [facility] upon dischargefor an appointment with PCP. Patient verbalized understanding. Patient to f/u PRN. * Telephone Encounter - Wanda Bishop RN - 05/18/2025 2:54 PM EDT TC incoming from [place] with [facility] with critical lab: Glucose of 604. Moriah WHITFIELD aware Nurse to route to PCP and team nurses to advise. documented in this encounter Plan of Treatment Upcoming Encounters Date Type Department Care Team (Late st Contact Info) Description 06/01/2025 10:00 AM EDT Clinical Support [facility] [address] [place] [address] documented as of this encounter Visit Diagnoses Not on filedocumented in this encounter Care Teams Lumber Carrier Relationship Specialty Start Date End Date Maria Isabel North DO [address] [place] [phone] PCP - General Family Medicine 05/03/25 documented as of this encounter
--- OUTSIDE RECORDS SUMMARY | 2025-05-19 20:37 | XMS_ITS | Clinical Summary ---
Author Organization [employer] Address [address] [facility] [address] [place] [address] Care Team Providers Care Hopper Attendant Name Role Phone Mary AnneMaria Isabel Primary [...] Description 05/18/2025 10:40 AM EDT Office Visit [facility] [address] [place] [phone] Joya Hernandez MD Rash (Primary Dx) 05/18/2025 10:30 AM EDT Clinical Support [facility] [address] [place] [address] Lily Espitia, RN Primary hypertension [I10] 05/18/2025 Telephone [facility] [address] [place] [address] Maria Isabel North DO CRITICAL LAB 05/18/[address] [address] Maria Isabel North DO 05/18/2025 Travel 05/06/2025 3:00 PM EDT Clinical Support [address] [address] Julia Eubanks RN Gonorrhea 05/05/2025 Travel 05/04/2025 Orders Only [address] [address] Kaylah Wilburn MD 05/04/2025 Results Follow-Up [address] [address] Kaylah Wilburn MD Chlamydia/N. Gonorrhoeae, PCR, Urine, Urinalysis, Complete, with Reflex to Culture, POCT Urinalysis 05/03/2025 6:00 PM EDT Office Visit [facility] [address] [place] [phone] Kaylah Wilburn MD Penile discharge (Primary Dx); Acute midline low back pain without sciatica 05/03/2025 Travel 04/26/2025 9:40 AM EDT Office Visit [facility] [address] [place] [phone] Maria Isabel North DO Essential hypertension (Primary [...] Description 06/01/2025 10:00 AM EDT Clinical Support [address] [address] Health Maintenance Due Date Last Done Comments CT Colonography 1970 Colonoscopy 1970 Colorectal Cancer Screening 1970 Depression Screening 1970 FIT DNA/Cologuard 1970 FIT 1970 FOBT 1970 SDOH Screening 1970 Sigmoidoscopy 1970 Disability Screening 1970 Alcohol/Substance Use Screening 1982 Pneumococcal Vaccine: 50+ Years (1 of 2 - PCV) 1989 Zoster Vaccines (1 of 2) 2020 Hepatitis B Vaccines (2 of 2 - CpG 2-dose series) 01/02/2024 12/05/2023 COVID-19 Vaccine (4 - 2024-2 6 season) 2025 11/27/2023, 02/11/2021, 01/21/2021 Influenza Vaccine (#1) 2025 Tobacco Screening 05/18/2026 05/18/2025 Lipid Panel 05/18/2030 05/18/2025, 05/18/2025 DTaP/Tdap/Td Vaccines (2 - T d or Tdap) 12/04/2033 12/05/2023 RSV Patients and Patients Aged 60 years or older (1 - 1-dose 75+ series) 2045 HIV Screening Completed 05/18/2025, 05/18/2025 Hepatitis C Screening Completed 05/18/2025 , 05/18/2025 HIB Vaccines Aged Out No longer eligi [...] Procedure Name Priority Date/Time Associated Diagnosis Comments GLUCOSE, WHOLE BLOOD Routine 05/18/2025 8:00 PM EDT GLUCOSE, WHOLE BLOOD Routine 05/18/2025 6:40 PM EDT URINALYSIS, COMPLETE, WITH REFLEX TO CULTURE Routine 05/18/2025 5:32 PM EDT GLUCOSE, WHOLE BLOOD Routine 05/18/2025 5:14 PM EDT GLUCOSE, WHOLE BLOOD Routine 05/18/2025 5:07 PM EDT VENOUS BLOOD GAS Routine 05/18/2025 4:56 PM EDT MAGNESIUM Routine 05/18/2025 4:51 PM EDT COMPREHENSIVE METABOLIC PANEL Routine 05/18/2025 4:51 PM EDT BETA-HYDROXYBUTYRATE Routine 05/18/2025 4:51 PM EDT CBC WITH AUTO DIFFERENTIAL Routine 05/18/2025 4:51 PM EDT HEPATITIS B CORE AB TOTAL Routine 05/18/2025 11:10 AM EDT Essential hypertension HEPATITIS B SURFACE ANTIBODY, QUALITATIVE Routine 05/18/2025 11:10 AM EDT Essential hypertension HEPATITIS C AB W/REFL TO HCV RNA, QN, PCR Routine 05/18/2025 11:10 AM EDT Essential hypertension HIV 1/2 ANTIGEN/ANTIBODY, FOURTH GENERATION W/RFL Routine 05/18/2025 11:10 AM EDT Essential hypertension HEPATITIS B SURFACE ANTIGEN, EIA Routine 05/18/2025 11:10 AM EDT Essential hypertension ALBUMIN, RANDOM URINE W/CREATININE Routine 05/18/2025 11:10 AM EDT Essential hypertension CBC Routine 05/18/2025 11:10 AM EDT Essential hypertension HEMOGLOBIN A1C Routine 05/18/2025 11:10 AM EDT Essential hypertension HEPATIC FUNCTION PANEL Routine 05/18/2025 11:10 AM EDT Essential hypertension TSH Routine 05/18/2025 11:10 AM EDT Essential hypertension LIPID PANEL, STANDARD Routine 05/18/2025 11:10 AM EDT Essential hypertension VITAMIN D,25-OH,TOTAL,IA Routine 05/18/2025 11:10 AM EDT Essential hypertension T4, FREE Routine 05/18/2025 11:10 AM EDT Essential hypertension VITAMIN D,25-OH,TOTAL,IA Routine 05/18/2025 11:10 AM EDT Primary hypertension LIPID PANEL, STANDARD Routine 05/18/2025 11:10 AM EDT Primary hypertension HEPATITIS C AB W/REFL TO HCV RNA, QN, PCR Routine 05/18/2025 11:10 AM EDT Primary hypertension HIV 1/2 ANTIGEN/ANTIBODY, FOURTH GENERATION W/RFL Routine 05/18/2025 11:10 AM EDT Primary hypertension HEMOGLOBIN A1C Routine 05/18/2025 11:10 AM EDT Primary hypertension COMPREHENSIVE METABOLIC PANEL Routine 05/18/2025 11:10 AM EDT Primary hypertension CBC WITH AUTO DIFFERENTIAL Routine 05/18/2025 11:10 AM EDT Primary hypertension CULTURE, URINE, ROUTINE Routine 05/04/2025 12:00 AM EDT POCT URINALYSIS DIPSTICK Routine 05/03/2025 5:41 PM EDT Penile discharge URINALYSIS, COMPLETE, WITH REFLEX TO CULTURE Routine 05/03/2025 5:39 PM EDT Penile discharge CHLAMYDIA/TRICHOMONAS /NEISSERIA GONORRHOEAE, PCR, URINE Routine 05/03/2025 5:39 PM EDT Penile discharge from Last 3 Months Results * (ABNORMAL) Glucose, Whole Blood (05/18/2025 8:00 PM EDT) Only the most recent of4 resultswithin the time period is included. Glucose, Whole Blood 386(HH) 60 - 115 mg/dL [facility] Comment:METER #: [id number] 05/18/2025 8:00 PM EDT 05/18/2025 8:03 PM EDT us Generic External Data Provider LAB BLOOD ORDERAB LES Final Result [facility] [address] [place] [phone] * (ABNORMAL) Urinalysis, Complete, with Reflex to Culture (05/18/2025 5:32 PM EDT) Only the most recent of2 resultswithin the time period is included. Color Urine Yellow [facility] Appearance Urine Clear [facility] PH 6.5 5.0 - 9.0 [facility] Glucose Urine UA >=1000(A) Negative mg/dL [facility] Urine Blood Negative Negative [facility] Specific [place] - Urine >=1.030(H) 1.005 - 1.025 [facility] Urine Protein Negative Neg-Trace mg/dL [facility] Urine Ketones Negative Negative mg/dL [facility] Nitrite Urine Negative Negative [facility] Leukocyte Esterase Urine Negative Negative [facility] RBC Urine 0-2 0 - 2 /HPF [facility] Urine WBC 0-5 0 - 5 /HPF [facility] Urine Squamous Epithelial Cell 0-2 0 - 2 /HPF [facility] Urine Bacteria None Seen None Seen [facility] Hyaline Casts, Urine 0-2 0 - 2 /LPF [facility] 05/18/2025 5:32 PM EDT 05/18/2025 5:35 PM EDT Narrative [facility] - 05/18/2025 6:28 PM EDT [id number], Clean Catch us Generic External Data Provider LAB URINE ORDERAB LES Final Result Performing Organization Address City/State/[facility] Co de Phone Number [facility] [address] [place] [phone] * VENOUS BLOOD GAS (05/18/2025 4:56 PM EDT) VBG pH 7.42 7.32 - 7.43 [facility] Comment:METER #: [id number] additional_comment: Cb delgadj VBG PCO2 40 mmHg [facility] Comment:METER #: [id number] additional_comment: Cb delgadj VBG PO2 59 mmHg [facility] Comment:METER #: [id number] additional_comment: Cb delgadj VBG Base Excess 2.3 mmol/L [facility] Comment:METER #: [id number] additional_comment: Cb delgadj VBG HCO3 26 22 - 26 mmol/L [facility] Comment:METER #: [id number] additional_comment: Michael motley O2 Sat, Nick 91.0 % [facility] Comment:METER #: [id number] additional_comment: Michael motley 05/18/2025 4:56 PM EDT 05/18/2025 5:03 PM EDT us Generic External Data Provider LAB BLOOD ORDERAB LES Final Result Performing Organization Address City/[facility]/ZIP Co de Phone Number [facility] [address] [place] [phone] * (ABNORMAL) Beta-Hydroxybutyrate (05/18/2025 4:51 PM EDT) Pathologist [facility] Beta-Hydroxybu tyrate 0.38(H) 0.02 - 0.27 mmol/L [facility] 05/18/2025 4:51 PM EDT 05/18/2025 4:54 PM EDT us Generic External Data Provider LAB BLOOD ORDERAB LES Final Result Performing Organization Address [facility] Co de Phone Number [facility] [address] [place] [phone] * CBC auto differential (05/18/2025 4:51 PM EDT) Only the most recent of2 resultswithin the time period is included. White Blood Count 8.3 4.8 - 10.8 X10*3/uL [facility] Red Blood Count 5.39 4.60 - 5.80 X10*6/uL [facility] Hemoglobin 14.9 14.0 - 18.0 g/dl [facility] Hematocrit 45.2 42.0 - 52.0 % [facility] Mean Corpuscular Volume 83.9 80.0 - 98.0 fL [facility] Mean Corpuscular Hemoglobin 27.6 27.0 - 33.0 pg [facility] Mean Corpuscular HGB Conc 33.0 31.0 - 36.0 g/dl [facility] Red Cell Distribution Width 12.6 11.0 - 16.0 % [facility] Platelet Count 224 160 - 400 X10*3/uL [facility] Mean Platelet Volume 11.2 9.4 - 12.4 fL [facility] Neutrophils Percent Auto 65.2 45 - 73 % [facility] Imm Gran Pct Auto 0.4 0.0 - 0.4 % [facility] Lymphocytes Percent Auto 25.8 20 - 40 % [facility] Monocytes Percent Auto 7.3 2 - 11 % [facility] Eosinophils Percent Auto 0.7 0 - 4 % [facility] Basophils Percent Auto 0.6 0 - 2 % [facility] NRBC Pct Auto 0.0 0.0 - 0.2 /100WBC [facility] Neutrophils Absolute Auto 5.4 2.0 - 8.3 x10*3/uL [facility] Imm Gran Abs Auto 0.03 0.00 - 0.03 X10*3/uL [facility] Lymphocytes Absolute Auto 2.1 1.2 - 4.9 X10*3/uL [facility] Monocytes Absolute Auto 0.6 0.1 - 1.2 X10*3/uL [facility] Eosinophils Absolute Auto 0.1 0.0 - 0.4 X10*3/uL [facility] Basophils Absolute Auto 0.1 0.0 - 0.2 X10*3/uL [facility] NRBC Abs Auto 0.000 0.0 - 0.012 X10*3/uL [facility] 05/18/2025 4:51 PM EDT 05/18/2025 4:54 PM EDT us Generic External Data Provider LAB BLOOD ORDERAB LES Final Result [facility] [address] [place] [phone] [phone] * Magnesium (05/18/2025 4:51 PM EDT) Magnesium 2.1 1.6 - 2.6 mg/dL [facility] 05/18/2025 4:51 PM EDT 05/18/2025 4:54 PM EDT us Generic External Data Provider LAB BLOOD ORDERAB LES Final Result [facility] [address] [place] [phone] * (ABNORMAL) Comprehensive Metabolic Panel (05/18/2025 4:51 PM EDT) Only the most recent of2 resultswithin the time period is included. Sodium 131(L) 135 - 145 mmol/L [facility] Potassium 4.2 3.3 - 5.1 mmol/L [facility] Chloride 95(L) 96 - 108 mmol/L [facility] Carbon Dioxide 28 22 - 29 mmol/L [facility] Anion Gap 12 12 - 20 [facility] Urea Nitrogen (BUN) 14 9 - 16 mg/dL [facility] Creatinine, Serum 1.11 0.5 - 1.4 mg/dL [facility] Creatinine Clr Calc Pharmacy 90.7 [facility] Comment:eGFR (calculated fro m the MDRD study equation) and eCrCl(calculated from the Cockcroft-Gault equation) are based ondifferent parameters and may not yield comparable results.If eCrCl result is absurd, please check patient'sheight/weight. Estimated Glomerular Filt Rate >60 [facility] Comment:Chronic Kidney Disea se: Estimated GFR < 60 mL/min/1.90x7Wzuebs Kidney Disease: Estimated GFR < 15 mL/min/1.73m2 Glucose 742(HH) 60 - 115 mg/dL [facility] Comment:Critical value for t est(s): GLU Results called to and readback by: Savanah BECK Person calling: SALIERD Date:05/18/25Time: 1718 Calcium 9.1 8.4 - 10.2 mg/dL [facility] Bilirubin, Total 0.7 0.0 - 1.0 mg/dL [facility] Aspartate Amino Transferase 28 5 - 37 U/L [facility] Alanine Aminotransferase 29 0 - 40 U/L [facility] Total Protein 7.0 6.5 - 8.0 g/dL [facility] Albumin Level 4.4 3.5 - 5.0 g/dL [facility] Alkaline Phosphatase 125(H) 39 - 117 U/L [facility] 05/18/2025 4:51 PM EDT 05/18/2025 4:54 PM EDT us Generic External Data Provider LAB BLOOD ORDERAB LES Final Result [facility] [address] [place] [phone] * (ABNORMAL) Vitamin D, 25-Hydroxy, Total, Immunoassay (05/18/2025 11:10 AM EDT) Only the most recent of2 resultswithin the time period is included. Vitamin D 25-OH Total 27.5(L) >30 ng/mL [facility] Comment: Health Based Reference Values*< 20 ng/mL Nysdxwbxg12-32 ng/mL Insufficient> 30 ng/mL Sufficient*Cori NIELOSN. N Engl J Med. 2007;357:266-280There is no well-established upper level of normal vitamin Dlevels. Some laboratories use 50 ng/mL as an upper limit ofnormal. However, toxicity is patient-dependent and may occurat any level. Careful correlation with the patient'spresentation is necessary and, if there is concern forvitamin D toxicity, treatment should be consideredirrespective of the serum level.Care must be taken in interpreting Vitamin D results fromdifferent laboratories and methodologies. Published datademonstrated that results from patients undergoinghemodialysis may show a negative bias when tested withvarious automated 25-OH vitamin D assays when compared toLC-MS/MS.When testing samples from patients whose predominant form ofVitamin D is Vitamin D2, such as patients receiving VitaminD2 supplementation, results that are subtherapeutic shouldbe confirmed with another method such as LC-MS/MS. Blood Venous blood specimen / Unknown 05/18/2025 11:10 AM EDT 05/18/2025 1:50 PM EDT Maria Isabel Mary Anne LAB BLOOD ORDERABLES Final R esult Performing Organization Address [facility] Co de Phone Number [facility] [address] [place] [phone] * Albumin, Random Urine W/Creatinine (05/18/2025 11:10 AM EDT) Creatinine, Urine 53.27 mg/dL [facility] Microalbumin Urine 7.0 mg/L [facility] Microalbum Creatinine Ratio Ur 13.1 <30 ug/mg cr [facility] Comment:Albumin/Creatinine R atio Reference Ranges: Normal: < 30 ug/mg creatinine Microalbuminuria: 30 - 300 ug/mg creatinineClinical Albuminuria: > 300 ug/mg creatinine Urine (Urine, Random) 05/18/2025 11:10 AM EDT 05/18/2025 1:07 PM EDT Result [facility] Maria Isabel North LAB URINE ORDERABLES Final R esult Performing Organization Address [facility] Co de Phone Number [facility] [address] [place] [phone] * Hepatitis C Antibody with Reflex to HCV, RNA, Quantitative, Real-Time PCR (05/18/2025 11:10 AM EDT) Only the most recent of2 resultswithin the time period is included. Hepatitis C Antibody Nonreactive Nonreactive [facility] Comment:Antibodies to HCV no t detected; does not exclude early acuteHCV infection. Blood Venous blood specimen / Unknown 05/18/2025 11:10 AM EDT 05/18/2025 1:50 PM EDT Maria Isabel North DO LAB BLOOD ORDERABLES Final R esult Performing Organization Address City/[facility]/ZIP Co de Phone Number [facility] [address] [place] [phone] [phone] * Hepatitis B surface antigen, EIA (05/18/2025 11:10 AM EDT) Hepatitis B Surface Ag Negative Negative [facility] Blood Venous blood specimen / Unknown 05/18/2025 11:10 AM EDT 05/18/2025 1:50 PM EDT Maria Isabel North LAB BLOOD ORDERABLES Final R esult Performing Organization Address [facility]/ZIP Co de Phone Number [facility] [address] [place] [phone] * Hepatitis B Core Antibody, Total (05/18/2025 11:10 AM EDT) Pathologist [facility] Hepatitis B Core Antibody Nonreactive Nonreactive [facility] Blood Venous blood specimen / Unknown 05/18/2025 11:10 AM EDT 05/18/2025 1:50 PM EDT Maria Isabel North LAB BLOOD ORDERABLES Final R esult Performing Organization Address City/[facility]/ZIP Co de Phone Number [facility] [address] [place] [phone] * HIV-1/2 Antigen and Antibodies, Fourth Generation, with Reflexes (05/18/2025 11:10 AM EDT) Only the most recent of2 resultswithin the time period is included. HIV AB/AG Nonreactive Nonreactive [facility] Comment:HIV-1 p24 Ag and/or HIV-1/HIV-2 Ab not detected.A test result that is nonreactive does not exclude thepossibility of exposure to or infection with HIV-1 and/orHIV-2. Nonreactive results in this assay for individualswith prior exposure to HIV-1 and/or HIV-2 may be due toantigen and antibody levels that are below the limit ofdetection of this assay.The [employer] HIV Ag/Ab Combo assay result andsupplemental assay results should be interpreted inconjunction with the patient's clinical presentation,history and other laboratory results. If the results areinconsistent with clinical evidence, additional testing issuggested to confirm the result. Blood Venous blood specimen / Unknown 05/18/2025 11:10 AM EDT 05/18/2025 1:50 PM EDT Maria Isabel North DO LAB BLOOD ORDERABLES Final R esult Performing Organization Address [facility]/ZIP Co de Phone Number [facility] [address] [place] [phone] * Hepatitis B Surface Antibody, Qualitative (05/18/2025 11:10 AM EDT) Pathologist [facility] ~Hepatitis B Surface Antibody REACTIVE Nonreactive [facility] Comment:REACTIVE: > 11.99 mI U/mL Blood Venous blood specimen / Unknown 05/18/2025 11:10 AM EDT 05/18/2025 1:50 PM EDT Maria Isabel North LAB BLOOD ORDERABLES Final R esult Performing Organization Address [facility] Co de Phone Number [facility] [address] [place] [phone] * CBC (05/18/2025 11:10 AM EDT) White Blood Count 8.7 4.8 - 10.8 X10*3/uL [facility] Red Blood Count 5.68 4.60 - 5.80 X10*6/uL [facility] Hemoglobin 15.8 14.0 - 18.0 g/dl [facility] Hematocrit 48.1 42.0 - 52.0 % [facility] Mean Corpuscular Volume 84.7 80.0 - 98.0 fL [facility] Mean Corpuscular Hemoglobin 27.8 27.0 - 33.0 pg [facility] Mean Corpuscular HGB Conc 32.8 31.0 - 36.0 g/dl [facility] Red Cell Distribution Width 12.4 11.0 - 16.0 % [facility] Platelet Count 240 160 - 400 X10*3/uL [facility] Mean Platelet Volume 11.9 9.4 - 12.4 fL [facility] NRBC Pct Auto 0.0 0.0 - 0.2 /100WBC [facility] NRBC Abs Auto 0.000 0.0 - 0.012 X10*3/uL [facility] Blood Venous blood specimen / Unknown 05/18/2025 11:10 AM EDT 05/18/2025 1:50 PM EDT us Maria Isabel North DO LAB BLOOD ORDERABLES Final R esult [facility] [address] [place] [phone] * TSH (05/18/2025 11:10 AM EDT) Thyroid Stimulating Hormone 0.63 0.32 - 4.0 uIU/mL [facility] Comment:TSH 3rd Generation ( [employer]) Blood Venous blood specimen / Unknown 05/18/2025 11:10 AM EDT 05/18/2025 1:50 PM EDT us Maria Isabel North DO LAB BLOOD ORDERABLES Final R esult Performing Organization Address City/[facility]/ZIP Co de Phone Number [facility] [address] [place] [phone] * T4, Free (05/18/2025 11:10 AM EDT) Free T4 (Free Thyroxine) 1.18 0.71 - 1.85 ng/dL [facility] Blood Venous blood specimen / Unknown 05/18/2025 11:10 AM EDT 05/18/2025 1:50 PM EDT Maria Isabel North LAB BLOOD ORDERABLES Final R esult Performing Organization Address City/[facility]/ZIP Co de Phone Number [facility] [address] [place] [phone] * (ABNORMAL) Hemoglobin A1c (05/18/2025 11:10 AM EDT) Only the most recent of2 resultswithin the time period is included. Hemoglobin A1c 12.8(H) <6.0 % [facility] Comment:Hemoglobin A1C Refer ence Range Adults: 4.8 - 6.0 % Non diabetic: < 6.0 % Goal: < 7.0 %Additional Action Suggested: > 8.0 %Note: Hemoglobin A1c results are invalid for patients with abnormal amounts of HbF. Blood transfusions may impact the HbA1c concentration in the patient sample. Estimated Average Glucose 321 mg/dL [facility] Comment:eAG = Estimated ave rage glucose which is %A1C expressed asaverage glucose, using the formula of the W4C-VtiqkraFytjcsk Glucose study (ADAG), Diabetes Care, Vol.31,#8,Aug. 2007 Blood Venous blood specimen / Unknown 05/18/2025 11:10 AM EDT 05/18/2025 1:50 PM EDT Maria Isabel Moralesgabiedie MOROCHO LAB BLOOD ORDERABLES Final R esult [facility] [address] [place] [phone] * Hepatic Function Panel (05/18/2025 11:10 AM EDT) Bilirubin, Direct 0.3 0.0 - 0.5 mg/dL [facility] Blood Venous blood specimen / Unknown 05/18/2025 11:10 AM EDT 05/18/2025 1:50 PM EDT Maria Isabel North DO LAB BLOOD ORDERABLES Final R esult Performing Organization Address City/[facility]/ZIP Co de Phone Number [facility] [address] [place] [phone] * (ABNORMAL) Lipid Panel, Standard (05/18/2025 11:10 AM EDT) Only the most recent of2 resultswithin the time period is included. Triglycerides 259(H) <150 mg/dL [facility] Comment:Desirable Triglyceri de: less than 150 mg/dLBorderline High Triglyceride 150-199 mg/dLHigh Triglyceride: 200-499 mg/dLVery High Triglyceride: greater than or equal to 5OO mg/dL Cholesterol 179 <200 mg/dL [facility] Comment:Desirable Cholestero l: less than 200 mg/dLBorderline High Cholesterol: 200-239 mg/dLHigh Cholesterol: greater than 239 mg/dL LDL Cholesterol Calculated 96 <100 mg/dL [facility] Comment:Desirable LDL: less than 100 mg/dLNear Optimal/Above Optimal LDL: 110- 129 mg/dLBorderline High LDL: 130-159 mg/dLHigh LDL: 160-189 mg/dLVery High LDL: greater than or equal to 190 mg/dL HDL Cholesterol 32(L) >40 mg/dL [facility] Comment:Desirable HDL: great er than 40 mg/dL Note: This HDL assay may give artificially low results in patients with liver disease. Blood Venous blood specimen / Unknown 05/18/2025 11:10 AM EDT 05/18/2025 1:50 PM EDT Maria Isabel Mary Anne DO LAB BLOOD ORDERABLES Final R esult Performing Organization Address City/[facility]/ZIP Co de Phone Number [facility] [address] [place] [phone] * Culture, Urine, Routine (05/04/2025 12:00 AM EDT) Urine Urine specimen obtained by clean catch procedure / Unknown 05/04/2025 05/04/2025 Comment:UACC Narrative [facility] - 05/05/2025 9:29 AM EDT Urine Culture No growth. Specimen Source: Urine clean catch Kaylah Wilburn MD LAB MICROBIOLOGY - GENERAL ORDERABLES Final Result [facility] [address] [place] [phone] * (ABNORMAL) POCT Urinalysis (05/03/2025 5:41 [...] Media Lot # [id number] Lot# Expiration Date ,775 Urine 05/03/2025 5:41 PM EDT Kaylah Wilburn MD POINT OF CARE TEST ENTER/E DIT ORDERABLES Final Result * (ABNORMAL) Chlamydia/N. Gonorrhoeae, PCR, Urine (05/03/2025 5:39 PM EDT) CT PCR, Urine NOT DETECTED Not Detect. [facility] [facility] Comment:A not detected test result [...] psychologicalconsequences. NG PCR, Urine DETECTED(A) Not Detect. [facility] Comment:As with many diagnos tic [...] the ordering clinician orclinical facility [facility] required by [facility] law. Urine (Urine, Random) 05/03/2025 5:39 PM EDT 05/04/2025 12:16 PM EDT us Kaylah Wilburn MD LAB URINE ORDERABLES Final Result [facility] [address] [place] [address] [phone] from Last 3 Months [facility] HMO Care Teams Hopper Attendant Relationship Specialty Start Date End Date Maria Isabel North DO [address] [place] [address] PCP - General Family Medicine 05/03/25
[2025-05-19] MEDS: Lactated Ringers 1,000 ML 999 ML IV (21:50)
[2025-05-19 22:24] VITALS: BP 156/100; PULSE 83; RESP 12; TEMP 36.3; O2SAT 93
[2025-05-20 00:02] LABS: Glucose, Whole Blood 344 mg/dL (60-115)
[2025-05-20 00:11] LABS: Alanine Aminotransferase 24 U/L (0-40); Albumin Level 3.8 g/dL (3.5-5.0); Alkaline Phosphatase 103 U/L (39-117); Anion Gap 11 (12-20); Aspartate Amino Transferase 23 U/L (5-37); Blood Urea Nitrogen 10 mg/dL (9-16); Calcium 8.8 mg/dL (8.4-10.2); Carbon Dioxide 26 mmol/L (22-29); Chloride 105 mmol/L (96-108); Creatinine Clr Calc Pharmacy 112.1; Estimated Glomerular Filt Rate > 60; Potassium 4.1 mmol/L (3.3-5.1); Sodium 138 mmol/L (135-145); Total Protein 6.0 g/dL (6.5-8.0)
[2025-05-20 01:38] VITALS: BP 128/89; PULSE 84; RESP 16; TEMP 36.7; O2SAT 94
[2025-05-20 01:54] LABS: Glucose, Whole Blood 306 mg/dL (60-115)
[2025-05-20 02:20] VITALS: BP 128/89; PULSE 84; RESP 16; TEMP 36.7; O2SAT 94
== END 2025-05-20 02:46 | disposition home or self-care (01) ==
PROVIDERS: Physician Assistant Medical; Emergency Provider Student in an Organized Health Care Education/Training Program
DX: E11.65 Type 2 diabetes mellitus with hyperglycemia (principal); Z79.84 Long term (current) use of oral hypoglycemic drugs
CPT/HCPCS: 36415; 80048; 80053; 80076; 80307; 82010; 82803; 82947; 83735; 84484; 85025; 93005; 96361; 96374; 96376; 99284; J7120

== ENCOUNTER → 2025-05-19 17:35 | Outpatient (BNV) | payer BC, MEDICAID, SELFPAY | PROVIDERS: Emergency Provider Student in an Organized Health Care Education/Training Program; Visit Provider Internal Medicine Cardiovascular Disease | DX: R94.31 Abnormal electrocardiogram [ECG] [EKG] (principal); R42 Dizziness and giddiness | CPT/HCPCS: 93010 ==

== ENCOUNTER 2025-06-17 10:25 | Outpatient (REF) | payer BC, MEDICAID, SELFPAY ==
--- OUTSIDE RECORDS SUMMARY | 2025-06-01 05:00 | XMS_ITS ---
Author Organization [facility] [address] Address [address] [place] [address] Care Team Providers Care Cpas Name Role Phone Sayda Hirsch Primary Care Provider [phone] Encounters Encounter Location Date Provider Diagnosis [facility] [address] [address] 06/01/2025 Sayda Hirsch Plan Of Treatment No Information Progress Notes * Mane RICEOB:1970 (55 yo M)Acc No.[id number]:06/01/2025 Progress Notes Patient: Du BLISS Provider: Fabrizio Hirsch PA-C :1970 A ge:55 Y S ex:Male Date:06/01/2025 Address:[address] [place], [place] [id number] Subjective: * Chief Complaints: * * HPI: C onstitutional: Du is a 55-year-old male who presents today to establish care as a new patient. New patient paperwork reviewed. Medical, surgical, social, and family history reviewed. Previously seen at (). Last CPE/Labs: Specialists-- Dentist: Ophthalmology: Other concerns addressed today: Immunizations-- Influenza: COVID: PNA: Shingles: Tetanus: Screening-- Colonoscopy:. * ROS: C onstitutional: Patient denies any excessive fatigue with exercise, no weight loss, no fever, no night sweats, no changes in sleep. Eyes: No eye discharge, no itching, no redness, no vision changes. Advised the significance of regular eye exams to screen for glaucoma and other eye problems. Ear nose throat: No ear pain, No sore throat, no postnasal drip, no runny nose, no sneezing, no hearing changes Cardiovascular: No chest pain, no dyspnea on exertion, no PND, no orthopnea, no irregular pulse, no palpitations, no claudication, no diaphoresis, no claudication. Respiratory: No chronic cough, no hemoptysis, no sputum, no wheezing, no SOB, no pleuritic pain. GI: No diarrhea, no constipation, no blood in the stools, no pain associated with eating, no indigestion, no difficulty swallowing, no appetite change. Genitourinary: No painful urination, no hesitancy, no blood in the urine, no incontinence, no frequency, no urgency, no abnormal discharge. Musculoskeletal: No back pain, no joint pain, no limitations to walking and running, no joint deformity, no joint stiffness, no muscle weakness Integumentary: No new skin rash. No new changes in skin moles, no pruritis, no color change. Neurological: No history of seizures, no memory loss, no language dysfunction, no inability to concentrate, no localized weakness, no sensation loss, no confusion, no dizziness, no tremor, no numbness, no tingling. Psychiatric: no anxiety, no depression, no suicidal thoughts, feels safe at home. Endocrine: No polyuria, no polyphagia, no polydipsia. No heat/cold intolerance, no excesss thirst. Hematological: No easy bruising or bleeding, no lymph node swelling. * Medical History: Objective: * Vitals: * Physical Examination: G eneral: Age appropriate, well appearing, no acute distress, speaking in full sentences without respiratory compromise. Well groomed, well developed. Alert, Interactive. Skin: Warm, dry and intact. No lesions/rashes/erythema. HEENT: Normocephalic/atraumatic. Neck/Thyroid: Supple, with no lymphadenopathy. Full ROM. Lung: Clear to auscultation bilaterally, no wheezes, rales or rhonchi. No barrel chest. Equal chest rise and fall bilaterally. Cardiac: S1 and S2 appreciated. No murmurs/rubs or gallops. Extremities: Bilateral lower extremities with no edema or rubor. No evidence of varicose veins. Equal tone bilaterally. Neuro: CN II-XI grossly intact. Steady gait with ambulation observed. Psych: Stable mood and affect. Assessment: Plan: * Treatment: * Procedure Codes: 9 9199 NO SHOW OFFICE VISIT * Images: Billing Information: * Visit Code: * Procedure Codes: 68214 NO SHOW OFFICE VISIT. * Electronic signature of Robyn lauren BIN Hirsch on 06/17/2025 at 08:45 AM EDT Sign off status: Pending * Provider: Fabrizio Hirsch PA-C Date: Generated for Printi malissa/Faanag/eTransmitting on: 08:45 AM EDT History and Physical Notes * HPI (History of Present Illness) Category Sub-Category Detail Notes Category Not es Constitutional Du is a 55-year-old male who presents today to establish care as a new patient. New patient paperwork reviewed. Medical, surgical, social, and family history reviewed. Previously seen at (). Last CPE/Labs: Specialists-- Dentist: Ophthalmology: Other concerns addressed today: Immunizations-- Influenza: COVID: PNA: Shingles: Tetanus: Screening-- Colonoscopy: Physical Examination Category Sub-Category Detail Notes Section Note s General: Age appropriate, well appearing, no acute distress, speaking in full sentences without respiratory compromise. Well groomed, well developed. Alert, Interactive. Skin: Warm, dry and intact. No lesions/rashes/erythema. HEENT: Normocephalic/atraumatic. Neck/Thyroid: Supple, with no lymphadenopathy. Full ROM. Lung: Clear to auscultation bilaterally, no wheezes, rales or rhonchi. No barrel chest. Equal chest rise and fall bilaterally. Cardiac: S1 and S2 appreciated. No murmurs/rubs or gallops. Extremities: Bilateral lower extremities with no edema or rubor. No evidence of varicose veins. Equal tone bilaterally. Neuro: CN II-XI grossly intact. Steady gait with ambulation observed. Psych: Stable mood and affect
--- OUTSIDE RECORDS SUMMARY | 2025-06-17 11:54 | XMS_ITS | Encounter Summary ---
Author Organization [employer] Address [address] [facility] [address] [place] [address] Care Team Providers Care Desktop Technician Name Role Phone Maria Isabel North DO Primary Care Provider [phone] Reason for Visit * Reason Comments Med Change Request Encounter Details Date Type Department Care Team (Late st Contact Info) Description 06/03/2025 Refill [facility] [address] [place] [address] Maria Isabel North DO [address] [place] [address] Social History Tobacco Use Types Packs/Day Years Used Date Smoking Tobacco: Every Day Cigarettes 1 15 Started: 06/03/2010 Sex and Gender Information Value Date Recorded Sex Assigned at Male 10/12/2024 10:31 AM EST Legal Sex Male 10:51 AM EST Gender Identity Male 10/12/2024 10:31 AM EST Sexual Orientation Straight 10/12/2024 10 :31 AM EST documented as of this encounter Plan of Treatment Upcoming Encounters Date Type Department Care Team (Late st Contact Info) Description 07/15/2025 9:00 AM EST Medication Management [facility] [address] [place] [address] PuiaLashell, PharmD [address] [place] [address] documented as of this encounter Visit Diagnoses Not on filedocumented in this encounter Care Teams Desktop Technician Relationship Specialty Start Date End Date Maria Isabel North DO [address] [place] [address] PCP - General Family Medicine 05/03/25 documented as of this encounter
--- OUTSIDE RECORDS SUMMARY | 2025-06-17 11:54 | XMS_ITS | Encounter Summary ---
Author Organization [employer] Address [address] [facility] [address] [place] [address] Care Team Providers Care Safety Spec Name Role Phone Maria Isabel North DO Primary Care Provider [phone] Encounter Details Date Type Department Care Team (Latest Contact Info) Description 06/17/2025 Travel Social History Tobacco Use Types Packs/Day Years Used Date Smoking Tobacco: Every Day Cigarettes 0.9 39.8 Started: 1985 Smokeless Tobacco: Never Alcohol Use Standard Drinks/Week Comments Not Currently 0 (1 standard drink = 0.6 oz pur e alcohol) Alcohol Answer Date Recorded How often do you have a drink containing alcohol ? 1 06/17/2025 Average Number of Drinks Not on file 025 How often do you have six or more drinks on one occasion? 0 06/17/2025 Sex and Gender Information Value Date Recorded Sex Assigned at Male 10/12/2024 10:31 AM EST Legal Sex Male 10:51 AM EST Gender Identity Male 10/12/2024 10:31 AM EST Sexual Orientation Straight 10/12/2024 10 :31 AM EST documented as of this encounter Plan of Treatment Upcoming Encounters Date Type Department Care Team (Late st Contact Info) Description 07/15/2025 9:00 AM EST Medication Management [facility] [address] [place] [address] PuiaLashell, PharmD [address] [place] [address] documented as of this encounter Visit Diagnoses Not on filedocumented in this encounter Care Teams Safety Spec Relationship Specialty Start Date End Date Maria Isabel North DO [address] [place] [address] PCP - General Family Medicine 05/03/25 documented as of this encounter
--- OUTSIDE RECORDS SUMMARY | 2025-06-17 11:54 | XMS_ITS | Patient Health Record ---
Author Organization [facility] [address] Address [address] [place] [address] Care Team Providers Care Parking Meter Mechanic Name Role Phone Sayda Hirsch Primary Care Provider Reason For Referral No Information Encounters Encounter Location Date Provider Diagnosis [facility] [address] [address] 06/01/2025 Sayda Hirsch Plan Of Treatment No Information Insurance Providers Payer Name Payer Address Payer Phone Subscriber Number Group Number Insured Name Patient Relationship to Insured Coverage Start Date Coverage End Date [facility] [address] [place] [address] [phone] [id number] Du Ruggiero Self - patient is the insured
--- OUTSIDE RECORDS SUMMARY | 2025-06-17 11:54 | XMS_ITS | Clinical Summary ---
Author Organization [employer] Address [address] [facility] [address] [place] [address] Care Team Providers Care Document Control Specialist Name Role Phone Maria Isabel North Primary Care Provider [phone] Allergies No known active allergies Medications amLODIPine (Norvasc) 10 MG tabletIndicatio ns:Primary hypertension Take 1 tablet (10 mg) by mouth Once per day. 90 tablet 1 Active Additional Information Patient not taking.Reason: see [facility] note 06/17/25, will restart, Reported on 06/17/2025 clotrimazole (Lotrimin) 1 % cream Apply topically 2 times daily for 28 days. 30 g 2 Active triamcinolone (Kenalog) 0.1 % cream Apply topically if needed in the morning and at bedtime (pain and swelling). 30 g 2 Active losartan (Cozaar) 25 MG tablet Take 1 tablet (25 mg) by mouth Once per day. 90 tablet 3 025 2025 Active cholecalciferol (Vitamin D-3) 50 MCG (2000 UT) capsule Take 1 capsule (50 mcg) by mouth Once per day. 90 capsule 3 Active Additional Information Patient not taking.Reason: encoruaged to refill/restart in CDTM 06/17/25, Reported on 06/17/2025 atorvastatin (Lipitor) 40 MG tabletIndicatio ns:New onset type 2 diabetes mellitus (HCC) Take 1 tablet (40 mg) by mouth Once per day. 90 tablet 1 Active Additional Information Patient not taking.Reason: see CD note 06/17/25, will restart, Reported on 06/17/2025 nicotine (Nicoderm, Step 1) 21 MG/24HR patchIndication s:Smoker Apply 1 patch, as directed, every 24 hours. May remove at bedtime if needed & replace the next morning. Rotate application site. 42 patch 025 Active nicotine (Nicoderm, Step 2) 14 MG/24HR patchIndication s:Smoker Apply 1 patch, as directed, every 24 hours. May remove at bedtime if needed & replace the next morning. Rotate application site. 14 patch 025 Active nicotine (Nicoderm, Step 3) 7 MG/24HR patchIndication s:Smoker Apply 1 patch, as directed, every 24 hours. May remove at bedtime if needed & replace the next morning. Rotate application site. 14 patch 2 Active nicotine polacrilex (Commit) 4 MG lozengeIndicati ons:Smoker Dissolve 1 lozenge, as directed, every 1-2 hours as needed for cravings. Max 20 lozenges per 24 hours. 72 lozenge 5 Active metFORMIN (Glucophage) 1000 MG tabletIndicatio ns:New onset type 2 diabetes mellitus (HCC) Take 1 tablet (1,000 mg) by mouth with breakfast and with evening meal. 60 tablet 2 Active insulin glargine (Lantus SoloStar) 100 UNIT/ML penIndications: New onset type 2 diabetes mellitus (HCC) Inject 10 Units under the skin in the morning. 15 mL 2 Active Alcohol Swabs 70 % padsIndications :New onset type 2 diabetes mellitus (HCC) Use up to four daily, prior to BG checks & insulin injections 100 each 11 Active FreeStyle lancetsIndicati ons:New onset type 2 diabetes mellitus (HCC) 1 each by Other route 2 times daily. Use to test blood sugar twice daily (fasting & 2 hours post dinner) as directed. 100 each Active glucose blood (True Metrix Blood Glucose Test) test stripIndication s:New onset type 2 diabetes mellitus (HCC) Use to test blood sugar twice daily ( fasting & 2 hours post dinner), as directed 100 each 12 025 2025 Active insulin pen needle 32G x 4 mm miscIndications :New onset type 2 diabetes mellitus (HCC) Use to inject insulin 1 times daily (Lantus only) 100 each 3 Active atorvastatin (Lipitor) 40 MG tabletIndicatio ns:Primary hypertension Take 1 tablet (40 mg) by mouth Once per day. 30 tablet 2 2024 Discontinued(R eorder (will not trigger notification to Pharmacy)) nicotine (Nicoderm CQ) 21 MG/24HR patchIndication s:Smoker Place 1 patch on the skin 1 (one) time each day at the same time. 30 patch 2024 Discontinued cyclobenzaprine (Flexeril) 10 MG tabletIndicatio ns:Acute midline low back pain without sciatica One tab po at bedtime prn pain of muscles, do not drive with medicaion 30 tablet 2024 Discontinued(T herapy completed) Lantus SoloStar 100 UNIT/ML pen INJECT 10 UNIT (0.1 ML) SUBCUTANEOUSLY DAILY 2024 Discontinued(R eorder (will not trigger notification to Pharmacy)) insulin lispro (HumaLOG) 100 UNIT/ML injection PLEASE SEE ATTACHED FOR DETAILED DIRECTIONS 2024 Discontinued(T herapy completed) Embecta Pen Needle Ultrafine 32G X 6 MM misc USE FOUR TIMES A DAY OR DIRECTED. 2024 Discontinued(A lternate therapy) FreeStyle lancets TEST FOUR TIMES A DAY OR DIRECTED. 2024 Discontinued(R eorder (will not trigger notification to Pharmacy)) metFORMIN (Glucophage) 1000 MG tablet 1000 MG ORALLY 2 TIMES A DAY 2024 Discontinued(R eorder (will not trigger notification to Pharmacy)) Alcohol Swabs 70 % pads 1 PAD TOPICALLY 4 TIMES A DAY BEFORE MEAL/BED USE FOUR TIMES A DAY OR DIRECTED. 2024 Discontinued(R eorder (will not trigger notification to Pharmacy)) Continuous Glucose Energy Broker (FreeStyle Sosa 3 Iron) device 1 each Once per day. Use as directed for CGM 1 each 5 Discontinued(P atient refused) Continuous Glucose Sensor (FreeStyle Sosa 3 Plus Sensor) misc 1 each every 15 days. Apply 1 every 15 days as directed for CGM 2 each 2024 Discontinued(P atient refused) glucose blood (FreeStyle Precision Wilbur Test) test strip Use to test blood sugar 3 times daily in case of CGM failure or extremes of BG 100 each 2024 Discontinued(P atient refused) Active Problems Problem Noted Date Diagnosed Date Type 2 diabetes mellitus 06/03/2025 Lumbar spondylosis 06/03/2025 Lumbar disc disease 06/03/2025 Essential hypertension 10/12/2024 Assessment & Plan (10/12/2024 1:46 [...] goal I will add hydrochlorothiazide 12.5mg daily Tobacco use 10/12/2024 Assessment & Plan (10/12/2024 1:45 PM EST): Counseling done Nicotine patch prescribed Resolved Problems Problem Noted Date Diagnosed Date Resolved Date Acute left-sided low back pa in without sciatica 10/12/2024 06/03/2025 Assessment & Plan (10/12/2024 1:44 PM EST): Apply heat on affected area XRAY ordered he will be contacted with result Encounters Date Type Department Care Team Description 06/17/2025 Travel 06/03/2025 11:45 AM EDT Office Visit [facility] [address] [place] [address] Maria Isabel North DO New onset type 2 diabetes mellitus (HCC) (Primary Dx) 06/03/2025 Refill [facility] [address] [place] [address] Maria Isabel North DO 06/03/2025 Travel 05/31/2025 Telephone [facility] [place] [address] Maria Isabel North DO Appt R/S 05/27/2025 Telephone [facility] [place], [place] [address] Maria Isabel North, No Show 05/25/2025 Telephone [facility] [place] [address] Maria Isabel North DO Chart Prep 05/24/2025 Refill [facility] [place] [address] Maria Isabel North, 05/18/2025 10:40 AM EDT Office Visit [facility] [place] [address] Joya Hernandez MD Rash (Primary Dx) 05/18/2025 10:30 AM EDT Clinical Support [address] [place] [address] Lily Espitia, NAHID Primary hypertension [I10] 05/18/2025 Telephone [facility] [place] [address] Maria Isabel North DO CRITICAL LAB 05/18/2025 Refill [facility] [place] [address] Maria Isabel North DO 05/18/2025 Travel 05/06/2025 3:00 PM EDT Clinical Support [facility] [place] [address] Julia Eubanks, RN Gonorrhea 05/05/2025 Travel 05/04/2025 Orders Only [facility] [place] [address] Kaylah Wilburn MD 05/04/2025 Results Follow-Up [facility] [place] [address] Kaylah Wilburn MD Chlamydia/N. Gonorrhoeae, PCR, Urine, Urinalysis, Complete, with Reflex to Culture, POCT Urinalysis 05/03/2025 6:00 PM EDT [facility] [address] [place] [address] Kaylah Wilburn MD Penile discharge (Primary Dx); Acute midline low back pain without sciatica 05/03/2025 Travel 04/26/2025 9:40 AM EDT Office Visit [facility] [address] [place] [address] Maria Isabel North DO Essential hypertension (Primary Dx); Primary hypertension 04/26/2025 Travel from Last 3 Months Immunizations Immunization Administration Dates Next Due HepB-CpG 12/05/2023 Pfizer Covid-19 Vaccine 12+ 11/27/2023 Tdap 12/05/2023 Social History Tobacco Use Types Packs/Day Years Used Date Smoking Tobacco: Every Day Cigarettes 0.9 39.8 Started: 1985 Smokeless Tobacco: Never Tobacco Cessation:Ready to Q uit: Yes; Counseling Given: Yes Alcohol Use Standard Drinks/Week Comments Not Currently [...] Sign Reading Time Taken Comments Blood Pressure 160/90 06/17/2025 10:15 AM EDT Pulse 70 06/03/2025 12:03 PM EDT Temperature 37.1 C (98.8 F) 06/03/2025 12:03 PM EDT Respiratory Rate 22 06/03/2025 12:03 PM EDT Oxygen Saturation 98% 05/18/2025 10:49 AM EDT Inhaled Oxygen Concentration - - Weight 101 kg (223 lb) 06/03/2025 12:03 PM EDT Height 181 cm (5' 11.25 ) 06/03/2025 12:03 PM ED T Body Mass Index 30.88 06/03/2025 12:03 PM EDT Plan of Treatment Upcoming Encounters Date Type Department Care Team (Late st Contact Info) Description 07/15/2025 9:00 AM EST Medication Management [facility] [address] [place] [address] Lashell Wise, PharmD [address] [place] [address] Health Maintenance Due Date Last Done Comments CT Colonography 1970 Colonoscopy 1970 Colorectal Cancer Screening 1970 Depression Screening 1970 FIT DNA/Cologuard 1970 FIT 1970 FOBT 1970 SDOH Screening 1970 Sigmoidoscopy 1970 Disability Screening 1970 Diabetes: Foot Exam 1980 Eye Exam 1980 Alcohol/Substance Use Screening 1982 Pneumococcal Vaccine: 50+ Years (1 of 2 - PCV) 1989 Zoster Vaccines (1 of 2) 2020 Hepatitis B Vaccines (2 of 2 - CpG 2-dose series) 01/02/2024 12/05/2023 COVID-19 Vaccine (4 - 2024-2 6 season) 2025 11/27/2023, 02/11/2021, 01/21/2021 Influenza Vaccine (#1) 2025 Diabetes: Hemoglobin A1C 09/03/2025 025, 05/18/2025, 05/18/2025 Diabetes: Urine Protein Screening 05/18/2026 05/18/2025 Lipid Panel 05/18/2026 05/18/2025, 05/18/2025 Tobacco Screening 05/18/2026 05/18/2025 DTaP/Tdap/Td Vaccines (2 [...] Name Priority Date/Time Associated Diagnosis Comments POCT GLYCATED HEMOGLOBIN, TOTAL Routine 06/03/2025 12:07 PM EDT New onset type 2 diabetes mellitus (HCC) POCT GLUCOSE Routine 06/03/2025 12:05 PM EDT New onset type 2 diabetes mellitus (HCC) GLUCOSE, WHOLE BLOOD Routine 05/18/2025 8:00 PM [...] AUTO DIFFERENTIAL Routine 05/18/2025 4:51 PM EDT T-SPOT(R).TB Routine 05/18/2025 11:10 AM EDT Essential hypertension HEPATITIS B CORE AB TOTAL Routine 05/18/2025 11:10 AM EDT Essential hypertension HEPATITIS A ANTIBODY, TOTAL Routine 05/18/2025 11:10 AM EDT Essential hypertension HEPATITIS B SURFACE ANTIBODY, QUALITATIVE Routine 05/18/2025 11:10 AM EDT Essential hypertension RPR (MONITOR) W/REFL TITER Routine 05/18/2025 11:10 AM EDT Essential hypertension [...] Last 3 Months Results * (ABNORMAL) POCT Hgb A1c (06/03/2025 12:07 PM EDT) Hemoglobin A1C 12.5(A) 4.0 - 5.7 % QC Media Lot # [id number] Lot# Expiration Date 5 Blood 06/03/2025 12:0 7 PM EDT Maria Isabel North DO POINT OF CARE TEST ENTER/GODFREY T ORDERABLES Final Result * POCT Glucose (06/03/2025 12:05 PM EDT) Glucose Blood, POC 151 60 - 200 mg/dL Comment:random QC Media Lot # [id number] Lot# Expiration Date 3, Blood Capillary blood specimen / Unknown 06/03/2025 12:05 PM EDT Maria Isabel North DO POINT OF CARE TEST ENTER/GODFREY T ORDERABLES Final Result * (ABNORMAL) Glucose, Whole Blood (05/18/2025 8:00 PM EDT) Only the most recent of4 resultswithin the time period is included. Glucose, Whole Blood 386(HH) 60 - 115 mg/dL [facility] Comment:METER #: [id number] 05/18/2025 8:00 PM EDT 05/18/2025 8:03 PM EDT us Generic External Data Provider LAB BLOOD ORDERAB LES Final Result [facility] [address] [place] [phone] * (ABNORMAL) Urinalysis, Complete, with Reflex to Culture (05/18/2025 5:32 PM EDT) Only the most recent of2 resultswithin the time period is included. Color Urine Yellow [facility] Appearance Urine Clear [facility] PH 6.5 5.0 - 9.0 [facility] Glucose Urine UA >=1000(A) Negative mg/dL [facility] Urine Blood Negative Negative [facility] Specific [place] - Urine >=1.030(H) 1.005 - 1.025 [facility] Urine Protein Negative Neg-Trace mg/dL [facility] Urine Ketones Negative Negative mg/dL [facility] Nitrite Urine Negative Negative [facility] Leukocyte Esterase Urine Negative Negative [facility] RBC Urine 0-2 0 - 2 /HPF [facility] Urine WBC 0-5 0 - 5 /HPF [facility] Urine Squamous Epithelial Cell 0-2 0 - 2 /HPF [facility] Urine Bacteria None Seen None Seen [facility] Hyaline Casts, Urine 0-2 0 - 2 /LPF [facility] 05/18/2025 5:32 PM EDT 05/18/2025 5:35 PM EDT Narrative [facility] - 05/18/2025 6:28 PM EDT [id number], Clean Catch us Generic External Data Provider LAB URINE ORDERAB LES Final Result [facility] [address] [place] [phone] * VENOUS BLOOD GAS (05/18/2025 4:56 PM EDT) VBG pH 7.42 7.32 - 7.43 [facility] Comment:METER #: [id number] additional_comment: Michael rashidjose miguelmaryse VBG PCO2 40 mmHg [facility] Comment:METER #: [id number] additional_comment: Michael herculesj VBG PO2 59 mmHg [facility] Comment:METER #: [id number] additional_comment: Michael herculesj VBG Base Excess 2.3 mmol/L [facility] Comment:METER #: [id number] additional_comment: Michael motley VBG HCO3 26 22 - 26 mmol/L [facility] Comment:METER #: [id number] additional_comment: Michael rashidlive O2 Sat, Nick 91.0 % [facility] Comment:METER #: [id number] additional_comment: Cb rashidjose miguelj 05/18/2025 4:56 PM EDT 05/18/2025 5:03 PM EDT us Generic External Data Provider LAB BLOOD ORDERAB LES Final Result Performing Organization Address [facility]/ZIP Co de Phone Number [facility] [address] [place] [phone] * (ABNORMAL) Beta-Hydroxybutyrate (05/18/2025 4:51 PM EDT) Pathologist [facility] Beta-Hydroxybu tyrate 0.38(H) 0.02 - 0.27 mmol/L [facility] 05/18/2025 4:51 PM EDT 05/18/2025 4:54 PM EDT Generic External Data Provider LAB BLOOD ORDERAB LES Final Result Performing Organization Address [facility]/ZIP Co de Phone Number [facility] [address] [place] [phone] * CBC auto differential (05/18/2025 4:51 PM EDT) Only the most recent of2 resultswithin the time period is included. Pathologist [facility] White Blood Count 8.3 4.8 - 10.8 X10*3/uL [facility] Red Blood Count 5.39 4.60 - 5.80 X10*6/uL [facility] Hemoglobin 14.9 14.0 - 18.0 g/dl [facility] Hematocrit 45.2 42.0 - 52.0 % [facility] Mean Corpuscular Volume 83.9 80.0 - 98.0 fL [facility] Mean Corpuscular Hemoglobin 27.6 27.0 - 33.0 pg [facility] Mean Corpuscular HGB Conc 33.0 31.0 - 36.0 g/dl [facility] Red Cell Distribution Width 12.6 11.0 - 16.0 % [facility] Platelet Count 224 160 - 400 X10*3/uL [facility] Mean Platelet Volume 11.2 9.4 - 12.4 fL [facility] Neutrophils Percent Auto 65.2 45 - 73 % [facility] Imm Gran Pct Auto 0.4 0.0 - 0.4 % [facility] Lymphocytes Percent Auto 25.8 20 - 40 % [facility] Monocytes Percent Auto 7.3 2 - 11 % [facility] Eosinophils Percent Auto 0.7 0 - 4 % [facility] Basophils Percent Auto 0.6 0 - 2 % [facility] NRBC Pct Auto 0.0 0.0 - 0.2 /100WBC [facility] Neutrophils Absolute Auto 5.4 2.0 - 8.3 x10*3/uL [facility] Imm Gran Abs Auto 0.03 0.00 - 0.03 X10*3/uL [facility] Lymphocytes Absolute Auto 2.1 1.2 - 4.9 X10*3/uL [facility] Monocytes Absolute Auto 0.6 0.1 - 1.2 X10*3/uL [facility] Eosinophils Absolute Auto 0.1 0.0 - 0.4 X10*3/uL [facility] Basophils Absolute Auto 0.1 0.0 - 0.2 X10*3/uL [facility] NRBC Abs Auto 0.000 0.0 - 0.012 X10*3/uL [facility] 05/18/2025 4:51 PM EDT 05/18/2025 4:54 PM EDT us Generic External Data Provider LAB BLOOD ORDERAB LES Final Result [facility] [address] [place] [phone] * Magnesium (05/18/2025 4:51 PM EDT) Magnesium 2.1 1.6 - 2.6 mg/dL [facility] 05/18/2025 4:51 PM EDT 05/18/2025 4:54 PM EDT us Generic External Data Provider LAB BLOOD ORDERAB LES Final Result [facility] [address] [place] [phone] * (ABNORMAL) Comprehensive Metabolic Panel (05/18/2025 4:51 PM EDT) Only the most recent of2 resultswithin the time period is included. Sodium 131(L) 135 - 145 mmol/L [facility] Potassium 4.2 3.3 - 5.1 mmol/L [facility] Chloride 95(L) 96 - 108 mmol/L [facility] Carbon Dioxide 28 22 - 29 mmol/L [facility] Anion Gap 12 12 - 20 [facility] Urea Nitrogen (BUN) 14 9 - 16 mg/dL [facility] Creatinine, Serum 1.11 0.5 - 1.4 mg/dL [facility] Creatinine Clr Calc Pharmacy 90.7 [facility] Comment:eGFR (calculated fro m the MDRD study equation) and eCrCl(calculated from the Cockcroft-Gault equation) are based ondifferent parameters and may not yield comparable results.If eCrCl result is absurd, please check patient'sheight/weight. Estimated Glomerular Filt Rate >60 [facility] Comment:Chronic Kidney Disea se: Estimated GFR < 60 mL/min/1.17e7Fxfarf Kidney Disease: Estimated GFR < 15 mL/min/1.73m2 Glucose 742(HH) 60 - 115 mg/dL [facility] Comment:Critical value for t est(s): GLU Results called to and readback by: Savanah BECK Person calling: MANUELA Date:05/18/25Time: 1718 Calcium 9.1 8.4 - 10.2 mg/dL [facility] Bilirubin, Total 0.7 0.0 - 1.0 mg/dL [facility] Aspartate Amino Transferase 28 5 - 37 U/L [facility] Alanine Aminotransferase 29 0 - 40 U/L [facility] Total Protein 7.0 6.5 - 8.0 g/dL [facility] Albumin Level 4.4 3.5 - 5.0 g/dL [facility] Alkaline Phosphatase 125(H) 39 - 117 U/L [facility] 05/18/2025 4:51 PM EDT 05/18/2025 4:54 PM EDT us Generic External Data Provider LAB BLOOD ORDERAB LES Final Result [facility] [address] [place] [phone] * (ABNORMAL) Vitamin D, 25-Hydroxy, Total, Immunoassay (05/18/2025 11:10 AM EDT) Only the most recent of2 resultswithin the time period is included. Vitamin D 25-OH Total 27.5(L) >30 ng/mL [facility] Comment: Health Based Reference Values*< 20 ng/mL Utfulfuyf92-64 ng/mL Insufficient> 30 ng/mL Sufficient*Cori NIELSON. N Engl J Med. 2007;357:266-280There is no [...] DO LAB BLOOD ORDERABLES Final R esult [facility] [address] [place] [phone] * T-SPOT??.TB (05/18/2025 11:10 AM EDT) T Spot TB Negative Negative [facility] Comment:A negative test resu lt does not exclude the possibilityof exposure to or infection with Mycobacteriumtuberculosis (M. tuberculosis). Patients with recentexposure to TB infected individuals exhibiting anegative T-SPOT.TB result should be considered forretesting within 6 weeks or if other relevant clinicalsymptoms indicate. Results from T-SPOT.TB testing mustbe used in conjunction with each individual'sepidemiological history, current medical status,and results of other diagnostic evaluations.The T-SPOT.TB test is qualitative and results arereported as positive, borderline, or negative, giventhat the test controls perform as expected. In linewith the Centers for Disease Control and Prevention's2010 recommendation to report quantitative measurementsalongside the qualitative result, the laboratoryprovides spot counts for informational purposes only.The T-SPOT.TB test should not be interpreted as aquantitative test. TS PANEL A 0 [facility] TS PANEL B 0 [facility] Negative Control Passed [facility] Positive Control Passed [facility] Comment:For additional infor jatin, please refer tohttp://education.ALICE App/faq/IDT585(This link is being provided for informational/educational purposes only.)REPORT COMMENT:REC'D AT [facility] TEST WAS PERFORMED AT:[employer]/[id number] [place] [id number] DIAZ MD,PHD 05/18/2025 11:1 0 AM EDT 05/18/2025 1:50 PM EDT us Maria Isabel Barbozaedie [employer] LAB BLOOD ORDERABLES Final R esult Performing Organization Address [facility]/ZIP Co de Phone Number [facility] [address] [place] [phone] * Albumin, Random Urine W/Creatinine (05/18/2025 11:10 AM EDT) Creatinine, Urine 53.27 mg/dL [facility] Microalbumin Urine 7.0 mg/L [facility] Microalbum Creatinine Ratio Ur 13.1 <30 ug/mg cr [facility] Comment:Albumin/Creatinine R atio Reference Ranges: Normal: < 30 ug/mg creatinine Microalbuminuria: 30 - 300 ug/mg creatinineClinical Albuminuria: > 300 ug/mg creatinine Urine (Urine, Random) 05/18/2025 11:10 AM EDT 05/18/2025 1:07 PM EDT [facility] LAB URINE ORDERABLES Final R esult Performing Organization Address [facility] Co de Phone Number [facility] [address] [place] [phone] * Hepatitis C Antibody with Reflex to HCV, RNA, Quantitative, Real-Time PCR (05/18/2025 11:10 AM EDT) Only the most recent of2 resultswithin the time period is included. Hepatitis C Antibody Nonreactive Nonreactive [facility] Comment:Antibodies to HCV no t detected; does not exclude early acuteHCV infection. Blood Venous blood specimen / Unknown 05/18/2025 11:10 AM EDT 05/18/2025 1:50 PM EDT Maria Isabel North [employer] LAB BLOOD ORDERABLES Final R esult Performing Organization Address [facility] Co de Phone Number [facility] [address] [place] [phone] * Hepatitis A Antibody, Total (05/18/2025 11:10 AM EDT) Hepatitis A Antibody IgG REACTIVE Nonreactive [facility] Comment:The presence of IgG anti-HAV implies past HAV infection(recent or distant) or vaccination against HAV. Blood Venous blood specimen / Unknown 05/18/2025 11:10 AM EDT 05/18/2025 1:50 PM EDT Maria Isabel North DO LAB BLOOD ORDERABLES Final R esult Performing Organization Address City/[facility]/ZIP Co de Phone Number [facility] [address] [place] [phone] * Hepatitis B surface antigen, EIA (05/18/2025 11:10 AM EDT) Hepatitis B Surface Ag Negative Negative [facility] Blood Venous blood specimen / Unknown 05/18/2025 11:10 AM EDT 05/18/2025 1:50 PM EDT Maria Isabel North DO LAB BLOOD ORDERABLES Final R esult Performing Organization Address [facility] Co de Phone Number [facility] [address] [place] [phone] * Hepatitis B Core Antibody, Total (05/18/2025 11:10 AM EDT) Hepatitis B Core Antibody Nonreactive Nonreactive [facility] Blood Venous blood specimen / Unknown 05/18/2025 11:10 AM EDT 05/18/2025 1:50 PM EDT Maria Isabel North DO LAB BLOOD ORDERABLES Final R esult Performing Organization Address [facility] Co de Phone Number [facility] [address] [place] [phone] * RPR (Monitor) with Reflex to??Titer (05/18/2025 11:10 AM EDT) RPR (Monitor) w/Refl Titer NON-REACTI VE NON-REACT ANNA [facility] Comment:THIS TEST WAS PERFOR MED AT:[employer] [place] [phone] QUAN MD Rapid Plasma Reagin Ab Titer TNP [facility] Blood Venous blood specimen / Unknown 05/18/2025 11:10 AM EDT 05/18/2025 1:50 PM EDT Maria Isabel North [employer] LAB BLOOD ORDERABLES Final R esult Performing Organization Address [facility]/ZIP Co de Phone Number [facility] [address] [place] [phone] * HIV-1/2 Antigen and Antibodies, Fourth Generation, with Reflexes (05/18/2025 11:10 AM EDT) Only the most recent of2 resultswithin the time period is included. Pathologist [facility] HIV AB/AG Nonreactive Nonreactive [facility] Comment:HIV-1 p24 Ag and/or HIV-1/HIV-2 Ab not detected.A test result that is nonreactive does not exclude thepossibility of exposure to or infection with HIV-1 and/orHIV-2. Nonreactive results in this assay for individualswith prior exposure to HIV-1 and/or HIV-2 may be due toantigen and antibody levels that are below the limit ofdetection of this assay.The iCurrent HIV Ag/Ab Combo assay result andsupplemental assay results should be interpreted inconjunction with the patient's clinical presentation,history and other laboratory results. If the results areinconsistent with clinical evidence, additional testing issuggested to confirm the result. Blood Venous blood specimen / Unknown 05/18/2025 11:10 AM EDT 05/18/2025 1:50 PM EDT us Maria Isabel North DO LAB BLOOD ORDERABLES Final R esult Performing Organization Address City/[facility]/ZIP Co de Phone Number [facility] [address] [place] [phone] * Hepatitis B Surface Antibody, Qualitative (05/18/2025 11:10 AM EDT) Pathologist [facility] ~Hepatitis B Surface Antibody REACTIVE Nonreactive [facility] Comment:REACTIVE: > 11.99 mI U/mL Blood Venous blood specimen / Unknown 05/18/2025 11:10 AM EDT 05/18/2025 1:50 PM EDT Maria Isabel North DO LAB BLOOD ORDERABLES Final R esult Performing Organization Address [facility]/ZIP Co de Phone Number [facility] [address] [place] [phone] * CBC (05/18/2025 11:10 AM EDT) [facility] White Blood Count 8.7 4.8 - 10.8 X10*3/uL [facility] Red Blood Count 5.68 4.60 - 5.80 X10*6/uL [facility] Hemoglobin 15.8 14.0 - 18.0 g/dl [facility] Hematocrit 48.1 42.0 - 52.0 % [facility] Mean Corpuscular Volume 84.7 80.0 - 98.0 fL [facility] Mean Corpuscular Hemoglobin 27.8 27.0 - 33.0 pg [facility] Mean Corpuscular HGB Conc 32.8 31.0 - 36.0 g/dl [facility] Red Cell Distribution Width 12.4 11.0 - 16.0 % [facility] Platelet Count 240 160 - 400 X10*3/uL [facility] Mean Platelet Volume 11.9 9.4 - 12.4 fL [facility] NRBC Pct Auto 0.0 0.0 - 0.2 /100WBC [facility] NRBC Abs Auto 0.000 0.0 - 0.012 X10*3/uL [facility] Blood Venous blood specimen / Unknown 05/18/2025 11:10 AM EDT 05/18/2025 1:50 PM EDT Maria Isabel North LAB BLOOD ORDERABLES Final R esult Performing Organization Address City/[facility]/ZIP Co de Phone Number [facility] [address] [place] [phone] * TSH (05/18/2025 11:10 AM EDT) Thyroid Stimulating Hormone 0.63 0.32 - 4.0 uIU/mL [facility] Comment:TSH 3rd Generation ( [facility]) Blood Venous blood specimen / Unknown 05/18/2025 11:10 AM EDT 05/18/2025 1:50 PM EDT Maria Isabel North LAB BLOOD ORDERABLES Final R esult Performing Organization Address [facility]/ZIP Co de Phone Number [facility] [address] [place] [phone] * T4, Free (05/18/2025 11:10 AM EDT) Free T4 (Free Thyroxine) 1.18 0.71 - 1.85 ng/dL [facility] Blood Venous blood specimen / Unknown 05/18/2025 11:10 AM EDT 05/18/2025 1:50 PM EDT Maria Isabel North LAB BLOOD ORDERABLES Final R esult Performing Organization Address [facility] Co de Phone Number [facility] [address] [place] [phone] * (ABNORMAL) Hemoglobin A1c (05/18/2025 11:10 AM EDT) Only the most recent of2 resultswithin the time period is included. Hemoglobin A1c 12.8(H) <6.0 % [facility] Comment:Hemoglobin A1C Refer ence Range Adults: 4.8 - 6.0 % Non diabetic: < 6.0 % Goal: < 7.0 %Additional Action Suggested: > 8.0 %Note: Hemoglobin A1c results are invalid for patients with abnormal amounts of HbF. Blood transfusions may impact the HbA1c concentration in the patient sample. Estimated Average Glucose 321 mg/dL [facility] Comment:eAG = Estimated ave rage glucose which is %A1C expressed asaverage glucose, using the formula of the G0Z-YfenabiCkizaaf Glucose study (ADAG), Diabetes Care, Vol.31,#8,2007 Blood Venous blood specimen / Unknown 05/18/2025 11:10 AM EDT 05/18/2025 1:50 PM EDT Maria Isabel North DO LAB BLOOD ORDERABLES Final R esult Performing Organization Address City/[facility]/ZIP Co de Phone Number [facility] [address] [place] [phone] * Hepatic Function Panel (05/18/2025 11:10 AM EDT) Bilirubin, Direct 0.3 0.0 - 0.5 mg/dL [facility] Blood Venous blood specimen / Unknown 05/18/2025 11:10 AM EDT 05/18/2025 1:50 PM EDT Maria Isabel North DO LAB BLOOD ORDERABLES Final R esult [facility] [address] [place] [phone] * (ABNORMAL) Lipid Panel, Standard (05/18/2025 11:10 AM EDT) Only the most recent of2 resultswithin the time period is included. Triglycerides 259(H) <150 mg/dL [facility] Comment:Desirable Triglyceri de: less than 150 mg/dLBorderline High Triglyceride 150-199 mg/dLHigh Triglyceride: 200-499 mg/dLVery High Triglyceride: greater than or equal to 5OO mg/dL Cholesterol 179 <200 mg/dL [facility] Comment:Desirable Cholestero l: less than 200 mg/dLBorderline High Cholesterol: 200-239 mg/dLHigh Cholesterol: greater than 239 mg/dL LDL Cholesterol Calculated 96 <100 mg/dL [facility] Comment:Desirable LDL: less than 100 mg/dLNear Optimal/Above Optimal LDL: 110- 129 mg/dLBorderline High LDL: 130-159 mg/dLHigh LDL: 160-189 mg/dLVery High LDL: greater than or equal to 190 mg/dL HDL Cholesterol 32(L) >40 mg/dL [facility] Comment:Desirable HDL: great er than 40 mg/dL Note: This HDL assay may give artificially low results in patients with liver disease. Blood Venous blood specimen / Unknown 05/18/2025 11:10 AM EDT 05/18/2025 1:50 PM EDT Maria Isabel North DO LAB BLOOD ORDERABLES Final R esult Performing Organization Address City/[facility]/ZIP Co de Phone Number [facility] [address] [place] [phone] * Culture, Urine, Routine (05/04/2025 12:00 AM EDT) Urine Urine specimen obtained by clean catch procedure / Unknown 05/04/2025 05/04/2025 Comment:UACC Narrative [facility] - 05/05/2025 9:29 AM EDT Urine Culture No growth. Specimen Source: Urine clean catch Kaylah Wilburn MD LAB MICROBIOLOGY - GENERAL ORDERABLES Final Result Performing Organization Address City/[facility] Co de Phone Number [facility] [address] [place] [phone] * (ABNORMAL) POCT Urinalysis (05/03/2025 5:41 [...] Media Lot # [id number] Lot# Expiration Date 285 Urine 05/03/2025 5:41 PM EDT Kaylah Wilburn MD POINT OF CARE TEST ENTER/E DIT ORDERABLES Final Result * (ABNORMAL) Chlamydia/N. Gonorrhoeae, PCR, Urine (05/03/2025 5:39 PM EDT) Pathologist [facility] CT PCR, Urine NOT DETECTED Not Detect. [facility] Comment:A not detected test result [...] psychologicalconsequences. NG PCR, Urine DETECTED(A) Not Detect. [facility] Comment:As with many diagnos tic [...] the ordering clinician orclinical facility [facility] required by state law. Urine (Urine, Random) 05/03/2025 5:39 PM EDT 05/04/2025 12:16 PM EDT us Kaylah Wilburn MD LAB URINE ORDERABLES Final Result [facility] [address] [place] [phone] from Last 3 Months Insurance [facility] HMO Care Teams Document Control Specialist Relationship Specialty Start Date End Date Maria Isabel North DO [address] [place] [address] PCP - General Family Medicine 05/03/25
[2025-06-17 12:20] LABS: Anion Gap 10 (12-20); Blood Urea Nitrogen 11 mg/dL (9-16); Calcium 8.8 mg/dL (8.4-10.2); Carbon Dioxide 26 mmol/L (22-29); Chloride 108 mmol/L (96-108); Estimated Glomerular Filt Rate > 60; Potassium 4.1 mmol/L (3.3-5.1); Sodium 140 mmol/L (135-145)
[2025-06-17 12:35] LABS: Vitamin B12 486 pg/mL (200-900)
== END 2025-06-17 10:26 | disposition home or self-care (01) ==
LOC: HO.HHCL 10:25
PROVIDERS: PCP Family Medicine; Visit Provider Family Medicine
DX: I10 Essential (primary) hypertension (principal); E11.9 Type 2 diabetes mellitus without complications
CPT/HCPCS: 36415; 80048; 82607